=== PATIENT | male | born 1925 | race Caucasian/White ===

== ENCOUNTER 2016-09-07 19:48 | Inpatient (IN) | payer OTHER, MEDICARE ==
[2016-09-07] MEDS ORDERED: TRAMADOL HCL 50 MG TABLET PO ONE (20:25)
--- NOTE | 2016-09-07 21:19 | RADIOLOGY REPORT (SQ) ---
EXAM DESCRIPTION: KNEE LEFT 4 VIEW COMPLETED DATE/TIME: 09/07/2016 8:49 pm REASON FOR STUDY: left knee effusion COMPARISON: None. NUMBER OF VIEWS: Four views. TECHNIQUE: AP, lateral, and both oblique radiographic images acquired of the left knee. LIMITATIONS: None. FINDINGS: MINERALIZATION: Osteopenia. BONES: No acute fracture or dislocation. No worrisome bone lesions. Tricompartmental degenerative c hanges are present. JOINT: A small joint effusion is present. Incidental note is made of chondrocalcinosis. SOFT TISSUES: No soft tissue swelling. No radio-opaque foreign body. OTHER: No other significant finding. IMPRESSION: Tricompartmental degenerative changes and chondrocalcinosis. Small joint effusion is no nspecific. No evidence of acute osseous abnormality. TECHNICAL DOCUMENTATION: JOB ID: [id number] All Rights Reserved
[2016-09-07] MEDS ORDERED: DIAZEPAM 5 MG TABLET PO ONE (21:52)
[2016-09-07] MEDS ORDERED: IBUPROFEN 600 MG TABLET PO ONE ×2 (22:39→22:41)
[2016-09-07] MEDS ORDERED: NORMAL SALINE 1000 ML 1,000 ML IV ONE (23:20)
[2016-09-07 23:28] LABS: ABSOLUTE LYMPHOCYTES (AUTO) 0.7 10^3/uL (0.5-4.7); ABSOLUTE NEUT (AUTO) 8.5 10^3/uL (1.7-8.2); BASOPHILS % (AUTO) 0.4 % (0-2); HEMATOCRIT 42.5 % (37.9-51.0); HEMOGLOBIN 14.1 g/dL (13.5-17.0); HGB HCT DIFFERENCE -0.2; LYMPHOCYTES % (AUTO) 6.8 % (13-45); MEAN CORPUSCULAR HGB CONC 33.1 g/dL (32.0-36.0); MEAN CORPUSCULAR VOLUME 100 fl (80-97); MONOCYTES % (AUTO) 9.5 % (3-13); RED BLOOD COUNT 4.27 10^6/uL (4.35-5.55); RED CELL DISTRIBUTION WIDTH 13.7 % (11.5-14.0); SEGMENTED NEUTROPHILS % (AUTO) 83.3 % (42-78); WHITE BLOOD COUNT 10.3 10^3/uL (4.0-10.5)
[2016-09-07 23:34] LABS: PROTHROMBIN TIME 13.4 SEC (11.4-15.4)
[2016-09-07 23:35] LABS: VENOUS BLOOD BASE EXCESS 6.4 mmol/L; VENOUS BLOOD HCO3 32.2 mmol/L (20-32); VENOUS BLOOD PCO2 50.5 mmHg (35-63); VENOUS BLOOD PH 7.42 (7.30-7.42)
[2016-09-07 23:46] LABS: ALANINE AMINOTRANSFERASE 34 U/L (21-72); ALBUMIN 3.5 g/dL (3.5-5.0); ALKALINE PHOSPHATASE 87 U/L (38-126); ANION GAP 13 (5-19); ASPARTATE AMINO TRANSFERASE 20 U/L (17-59); BILIRUBIN,DIRECT 0.6 mg/dL (0.0-0.4); BILIRUBIN,TOTAL 1.1 mg/dL (0.2-1.3); BLOOD UREA NITROGEN 17 mg/dL (7-20); CALCIUM 9.6 mg/dL (8.4-10.2); CARBON DIOXIDE 29 mmol/L (22-30); CHLORIDE 96 mmol/L (98-107); CREATININE RESULT 0.94 mg/dL (0.52-1.25); GLUCOSE 146 mg/dL (75-110); POTASSIUM 3.8 mmol/L (3.6-5.0); SODIUM 137.5 mmol/L (137-145); TOTAL PROTEIN 6.5 g/dL (6.3-8.2)
[2016-09-08 00:15] LABS: APPEARANCE,URINE SLIGHTLY-CLOUDY; BILIRUBIN,URINE NEGATIVE (NEGATIVE); GLUCOSE, URINE 50 mg/dL (NEGATIVE); KETONES,URINE NEGATIVE (NEGATIVE); LEUKOCYTE ESTERASE,URINE NEGATIVE (NEGATIVE); NITRITE,URINE NEGATIVE (NEGATIVE); PROTEIN,URINE 100 mg/dL (NEGATIVE); UROBILINOGEN,URINE NEGATIVE mg/dL (<2.0)
[2016-09-08 00:19] LABS: RBC,URINE RARE /HPF; WBC,URINE RARE /HPF
--- NOTE | 2016-09-08 01:13 | RADIOLOGY REPORT (SQ) ---
EXAM DESCRIPTION: CHEST PA/LAT COMPLETED DATE/TIME: 09/08/2016 1:01 am REASON FOR STUDY: fever COMPARISON: Chest x-ray 07/23/2011. CT chest 09/19/2011. EXAM PARAMETERS: NUMBER OF VIEWS: two views TECHNIQUE: Digital Frontal and Lateral radiographic views of the chest acquired. RADIATION DOSE: NA LIMITATIONS: none FINDINGS: LUNGS AND PLEURA: No consolidation, pneumothorax or pleural effusion. Hyperlucent lungs a re suggestive of emphysema. MEDIASTINUM AND HILAR STRUCTURES: No masses or contour abnormalities. HEART AND VASCULAR STRUCTURES: Heart normal size. No evidence for failure. BONES: Degenerative changes in the spine. HARDWARE: None in the chest. IMPRESSION: No acute radiographic finding in the chest. Emphysema. TECHNICAL DOCUMENTATION: JOB ID: [id number] 2010 [employer]- All Rights Reserved
--- NOTE | 2016-09-08 01:35 | ER Document Report ---
ED General - General Chief Complaint: Knee Pain Stated Complaint: SHOULDER/NECK PAIN Time Seen by Provider: 09/07/16 20:12 Mode of Arrival: Ambulatory Information source: Patient Notes: 89-year-old male who up to 2 days ago was ambulating with no difficulty had no complaints presents with complaints of weakness. Patient was found to be febrile on arrival admits to neck pain left knee pain. TRAVEL OUTSIDE OF THE [place] IN LAST 30 DAYS: No - HPI Onset: Other - 2 days Onset/Duration: Persistent Quality of pain: Achy Severity: Mild Pain Level: 1 Associated symptoms: Body/muscle aches, Fever Exacerbated by: Denies Relieved by: Denies Similar symptoms previously: No Recently seen / treated by doctor: No - Related Data Allergies/Adverse Reactions: acetaminophen [From Percocet] Allergy (Severe, Verified 02/14/14 13:23) N&V codeine [Codeine] Allergy (Severe, Verified 02/14/14 13:23) N&V levofloxacin [From Levaquin] Allergy (Severe, Verified 02/14/14 13:23) oxycodone HCl [From Percocet] Allergy (Severe, Verified 02/14/14 13:23) N&V propoxyphene HCl [From Darvon] Allergy (Severe, Verified 02/14/14 13:23) N&V Home Medications: Current Home Medications Doxycycline Hyclate 100 mg PO DAILY 09/08/16 [History] Ferrous Sulfate [Iron] 1 tab PO DAILY 09/08/16 [History] Fluticasone/Salmeterol [Advair 250-50 Diskus 28 dose] 2 puff IH ASDIR PRN [History] Glimepiride 1 mg PO BID 09/08/16 [History] Isosorbide Dinitrate [Isordil] 40 mg PO TID 09/08/16 [History] Levothyroxine Sodium 1 tab PO DAILY 09/08/16 [History] Loratadine 10 mg PO DAILY 09/08/16 [History] Mirabegron [Myrbetriq] 1 tab PO DAILY 09/08/16 [History] Montelukast Sodium [Singulair 10 mg Tablet] 1 tab PO DAILY 09/08/16 [History] Nitroglycerin [Nitroglycerin Patch] 1 patch TOP DAILY 09/08/16 [History] Pantoprazole Sodium [Protonix] 40 mg PO DAILY 09/08/16 [History] Pnv with Ca,No.72/Iron/FA [ Plus Tablet] 1 tab PO DAILY 09/08/16 [ History] Pramipexole Di-HCl [Pramipexole Dihydrochloride] 1 tab PO QHS 09/08/16 [History] Promethazine HCl 1 tab PO TID PRN 09/08/16 [History] Tamsulosin HCl [Flomax 0.4 mg Cap.sr] 1 cap PO DAILY 09/08/16 [History] Telmisartan/Hydrochlorothiazid [Telmisartan-Hctz 80-12.5 mg Tb] 0.5 tab PO DAILY 09/08/16 [History] Past Medical History - Social History Smoking Status: Never Smoker Cigarette use (# per day): No Chew tobacco use (# tins/day): No Smoking Education Provided: No Family History: Reviewed & Not Pertinent - Past Medical History Cardiac Medical History: Reports: Hx Congestive Heart Failure, Hx Coronary Artery Disease, Hx Hypertension, Hx Peripheral Vascular Disease Denies: Hx Heart Attack Pulmonary Medical History: Reports: Hx Asthma, Hx Bronchitis, Hx COPD - O2 dependent Denies: Hx Pneumonia, Hx Tuberculosis Neurological Medical History: Denies: Hx Cerebrovascular Accident, Hx Seizures Endocrine Medical History: Reports: Hx Diabetes Mellitus Type 2 GI Medical History: Reports: Hx Gastroesophageal Reflux Disease Musculoskeltal Medical History: Reports Hx Arthritis, Reports Hx Muscle Weakness Infectious Medical History: Past Surgical History: Reports: Hx Cardiac Catheterization - With 3 angioplasties., Hx Coronary Artery Bypass Graft, Hx Coronary Stent, Hx Inguinal Hernia - Bilateral inguinal hernia repairs in 1982, Hx Orthopedic Surgery - 5 cervical spine procedures, Hx Vascular Surgery - Aortobifem grafting by history. Denies: Hx Pacemaker - Immunizations Hx Diphtheria, Pertussis, Tetanus Vaccination: Yes Hx Pneumococcal Vaccination: 03/17/11 Review of Systems - Review of Systems Notes: REVIEW OF SYSTEMS: CONSTITUTIONAL : Denies fever, chills, or sweats. Denies recent illness. EENT: Admits to neck pain CARDIOVASCULAR: Denies chest pain. Denies palpitations or racing or irregular heart beat. Denies ankle edema. RESPIRATORY: Denies cough, cold, or chest congestion. Denies shortness of breath, difficulty breathing, or wheezing. GASTROINTESTINAL: Denies abdominal pain or distention. Denies nausea, vomiting , or diarrhea. Denies blood in vomitus, stools, or per rectum. Denies black, tarry stools. Denies constipation. GENITOURINARY: Denies difficulty urinating, painful urination, burning, frequency, blood in urine, or discharge. MUSCULOSKELETAL: Admits to joint pains knee pain SKIN: Denies rash, lesions or sores. HEMATOLOGIC : Denies easy bruising or bleeding. LYMPHATIC: Denies swollen, enlarged glands. NEUROLOGICAL: Denies confusion or altered mental status. Denies passing out or loss of consciousness. Denies dizziness or lightheadedness. Denies headache. Denies weakness or paralysis or loss of use of either side. Denies problems with gait or speech. Denies sensory loss, numbness, or tingling. Denies seizures. PSYCHIATRIC: Denies anxiety or stress. Denies depression, suicidal ideation, or homicidal ideation. ALL OTHER SYSTEMS REVIEWED AND NEGATIVE. Dictation was performed using [employer] voice recognition software PHYSICAL EXAMINATION: GENERAL: Elderly male HEAD: Atraumatic, normocephalic. EYES: Pupils equal round and reactive to light, extraocular movements intact, sclera anicteric, conjunctiva are normal. ENT: Nares patent, oropharynx clear without exudates. Moist mucous membranes. NECK: Normal range of motion, supple without lymphadenopathy LUNGS: Breath sounds clear to auscultation bilaterally and equal. No wheezes rales or rhonchi. HEART: Regular rate and rhythm without murmurs ABDOMEN: Soft, nontender, nondistended abdomen. No guarding, no rebound. No masses appreciated. Musculoskeletal: Normal range of motion, no pitting or edema. No cyanosis. NEUROLOGICAL: Extremely weak unable to raise himself in the bed mild effusion left knee PSYCH: Normal mood, normal affect. SKIN: Warm, Dry, normal turgor, no rashes or lesions noted. Physical Exam - Vital signs Vitals: Temp Pulse Resp BP Pulse Ox 100.5 F H 102 H 22 H 141/56 H 96 09/07/16 19:55 09/07/16 19:55 09/07/16 19:55 09/07/16 19:55 09/07/16 19:55 Course - Re-evaluation Re-evalutation: 09/08/16 01:[address] Bob for admission he defers on admission given that no source of infection found no source of the weakness, I have requested he evaluate patient prior to refusal 09/08/16 02:54 Patient is noted to have an ESR of 102, we will admit to the hospitalist service at this time no specific source of infection is found at this time patient does meet sirs criteria 09/08/16 03:29 Patient initially was noted to be febrile tachycardic, no specific source of infection therefore I will hold on starting antibiotics at this time. Patient will be admitted - Vital Signs Vital signs: Temp Pulse Resp BP Pulse Ox 98.1 F 102 H 19 105/50 L 90 L 09/08/16 01:06 09/07/16 19:55 09/08/16 02:30 09/08/16 02:30 09/08/16 02:30 - Laboratory Result Diagrams: 09/07/16 23:07 09/07/16 23:07 Laboratory results interpreted by me: 09/07/16 09/07/16 09/07/16 23:07 23:07 23:07 RBC 4.27 L MCV 100 H Seg Neutrophils % 83.3 H Lymphocytes % 6.8 L Absolute Neutrophils 8.5 H ESR VBG HCO3 32.2 H Chloride 96 L Glucose 146 H POC Glucose Direct Bilirubin 0.6 H Creatine Kinase Urine Protein Urine Glucose (UA) 09/07/16 09/07/16 09/07/16 23:07 23:07 23:29 RBC MCV Seg Neutrophils % Lymphocytes % Absolute Neutrophils ESR 102 H VBG HCO3 Chloride Glucose POC Glucose 134 H Direct Bilirubin Creatine Kinase 32 L Urine Protein Urine Glucose (UA) 09/07/16 23:54 RBC MCV Seg Neutrophils % Lymphocytes % Absolute Neutrophils ESR VBG HCO3 Chloride Glucose POC Glucose Direct Bilirubin Creatine Kinase Urine Protein 100 H Urine Glucose (UA) 50 H - Diagnostic Test Radiology reviewed: Image reviewed, Reports reviewed Discharge - Discharge Clinical Impression: Weakness, Unable to ambulate, SIRS (systemic inflammatory response syndrome) Fever Qualifiers: Fever type: unspecified Qualified Code(s): R50.9 - Fever, unspecified Condition: Stable Disposition: ADMITTED OBSERVATION Admitting Provider: Hospitalist Unit Admitted: Telemetry Referrals: JERALD WHITE MD [Primary Care Provider] - Follow up as needed
[2016-09-08] MEDS ORDERED: METHYLPREDNISOLONE INJ 125 MG/2 ML SDV IV ONE (02:54)
[2016-09-08] MEDS ORDERED: CYCLOBENZAPRINE HCL 10 MG TABLET PO PRN (02:55)
[2016-09-08] MEDS ORDERED: TRAMADOL HCL 50 MG TABLET PO PRN (02:55)
[2016-09-08] MEDS ORDERED: DEXTROSE 50%-WATER 25 GM/50 ML DISP.SYRIN IV PRN ×2 (02:57)
[2016-09-08] MEDS ORDERED: DEXTROSE 40% GEL 15 GM TUBE PO PRN ×2 (02:57)
[2016-09-08] MEDS ORDERED: GLUCAGON,HUMAN RECOMB 1 MG INJ IM PRN (02:57)
[2016-09-08] MEDS: NORMAL SALINE 1000 ML 1,000 ML IV SCH ×2 (03:56→10:58)
[2016-09-08] MEDS ORDERED: LEVOFLOXACIN 750 MG/D5W RTU 150 ML IV SCH (04:00)
[2016-09-08] MEDS ORDERED: LEVOFLOXACIN 750 MG/D5W RTU 750 MG/150 ML RTUPB IV ONE (04:00)
--- NOTE | 2016-09-08 04:31 | PDOC H&P ---
History of Present Illness Admission Date/PCP: 09/08/16 02:57 JERALD WHITE MD Patient complains of: Arthralgias History of Present Illness: CHACHO WOO JR is a 89 year old male with a past medical history of severe COPD with oxygen dependence, congestive heart failure, coronary artery disease status post stent, hypertension, dyslipidemia, diabetes BPH, and chronic constipation. He denies usual state of health until approximately 12 hours prior to presentation with complaints of diffuse arthralgias and abdominal pain several days of constipation and an episode of diarrhea. He comes to the emergency room for evaluation is found to have fever, hypotension, generalized weakness and tachycardia is referred to the hospitalist for admission. Patient is a poor historian but is unaware of recent change in medication. Past Medical History Cardiac Medical History: Reports: Congestive Heart Failure, Coronary Artery Disease, Hypertension, Peripheral Vascular Disease Denies: Myocardial Infarction Pulmonary Medical History: Reports: Asthma, Bronchitis, Chronic Obstructive Pulmonary Disease (COPD) - O2 dependent Denies: Pneumonia, Tuberculosis Neurological Medical History: Denies: Seizures Endocrine Medical History: Reports: Diabetes Mellitus Type 2 GI Medical History: Reports: Gastroesophageal Reflux Disease Musculoskeltal Medical History: Reports: Arthritis Hematology: Denies: Anemia Past Surgical History Past Surgical History: Reports: Cardiac Catheterization - With 3 angioplasties. , Coronary Artery Bypass Graft, Coronary Stent, Orthopedic Surgery - 5 cervical spine procedures, Vascular Surgery - Aortobifem grafting by history Denies: Pacemaker Social History Information Source: Patient, [facility] Records Lives with: Family Smoking Status: Never Smoker Frequency of Alcohol Use: None Hx Recreational Drug Use: No Hx Prescription Drug Abuse: No - Advance Directive Resuscitation Status: Full Code Family History Family History: DM Parental Family History Reviewed: Yes Children Family History Reviewed: Yes Sibling(s) Family History Reviewed.: Yes Medication/Allergy Home Medications: Kennedy-3/Dha/Epa/Fish Oil [Fish Oil 1,000 Mg Softgel] 1 each PO BID 05/21/11 Pioglitazone HCl/Metformin HCl [Actoplus Met 15 Mg-500 Mg Tab] 2 each PO DAILY 05/21/11 Tiotropium [place] [Spiriva] 18 mcg IH DAILY 05/21/11 Albuterol Sulfate [Proventil 0.5% Neb 2.5 mg/0.5 mL Vial] 2.5 mg IH Q2 PRN 05/27 Insulin Lispro [Humalog Inj 100 Unit/Ml 3 Ml Vial] 0 unit SUBCUT ACHSP 05/28/11 Ipratropium [place] [Atrovent 0.02% Neb 0.5 Mg/2.5 Ml Vial.Neb] 0.5 mg IH Q6 26/02 Doxycycline Hyclate 100 mg PO DAILY 09/08/16 Ferrous Sulfate [Iron] 1 tab PO DAILY 09/08/16 Fluticasone/Salmeterol [Advair 250-50 Diskus 28 dose] 2 puff IH ASDIR PRN Glimepiride 1 mg PO BID 09/08/16 Isosorbide Dinitrate [Isordil] 40 mg PO TID 09/08/16 Levothyroxine Sodium 1 tab PO DAILY 09/08/16 Loratadine 10 mg PO DAILY 09/08/16 Mirabegron [Myrbetriq] 1 tab PO DAILY 09/08/16 Montelukast Sodium [Singulair 10 mg Tablet] 1 tab PO DAILY 09/08/16 Nitroglycerin [Nitroglycerin Patch] 1 patch TOP DAILY 09/08/16 Pantoprazole Sodium [Protonix] 40 mg PO DAILY 09/08/16 Pnv with Ca,No.72/Iron/FA [ Plus Tablet] 1 tab PO DAILY 09/08/16 Pramipexole Di-HCl [Pramipexole Dihydrochloride] 1 tab PO QHS 09/08/16 Promethazine HCl 1 tab PO TID PRN 09/08/16 Tamsulosin HCl [Flomax 0.4 mg Cap.sr] 1 cap PO DAILY 09/08/16 Telmisartan/Hydrochlorothiazid [Telmisartan-Hctz 80-12.5 mg Tb] 0.5 tab PO DAILY 09/08/16 Allergies/Adverse Reactions: acetaminophen [From Percocet] Allergy (Severe, Verified 02/14/14 13:23) N&V codeine [Codeine] Allergy (Severe, Verified 02/14/14 13:23) N&V levofloxacin [From Levaquin] Allergy (Severe, Verified 02/14/14 13:23) oxycodone HCl [From Percocet] Allergy (Severe, Verified 02/14/14 13:23) N&V propoxyphene HCl [From Darvon] Allergy (Severe, Verified 02/14/14 13:23) N&V Review of Systems ROS unobtainable: Due to mental status - Patient is a poor historian Physical Exam Vital Signs: Temp Pulse Resp BP Pulse Ox 98.1 F 102 H 20 100/40 L 99 09/08/16 01:06 09/07/16 19:55 09/08/16 03:31 09/08/16 03:31 09/08/16 03:31 General appearance: PRESENT: cooperative, disheveled, mild distress Head exam: PRESENT: atraumatic, normocephalic Eye exam: PRESENT: conjunctiva pink, EOMI, PERRLA. ABSENT: scleral icterus Ear exam: PRESENT: normal external ear exam Mouth exam: PRESENT: moist, tongue midline Neck exam: ABSENT: carotid bruit, JVD, lymphadenopathy, thyromegaly Respiratory exam: PRESENT: accessory muscle use, crackles, prolonged expiratory phas, symmetrical, tachypnea. ABSENT: chest wall tenderness, clear to auscultation staci, decreased breath sounds, rales, retraction, rhonchi Cardiovascular exam: PRESENT: RRR. ABSENT: diastolic murmur, rubs, systolic murmur Pulses: PRESENT: normal dorsalis pedis pul Vascular exam: PRESENT: normal capillary refill GI/Abdominal exam: PRESENT: distended, hyperactive bowel sounds, tenderness - Left lower quadrant pain with palpation of the colon. ABSENT: ascites Extremities exam: PRESENT: full ROM, joint swelling - Left knee effusion greater than 2 weeks old without erythema, pain or heat. ABSENT: calf tenderness, clubbing, pedal edema Musculoskeletal exam: PRESENT: ambulatory, other - Generalized arthralgia nonfocal Neurological exam: PRESENT: alert, altered, awake, oriented to person, oriented to place, oriented to situation, CN II-XII grossly intact Psychiatric exam: PRESENT: appropriate affect, normal mood. ABSENT: homicidal ideation, suicidal ideation Skin exam: PRESENT: dry, intact, warm. ABSENT: cyanosis, rash Results Impressions: Knee X-Ray 09/07/16 20:25 IMPRESSION: Tricompartmental degenerative changes and chondrocalcinosis. Small joint effusion is nonspecific. No evidence of acute osseous abnormality. Chest X-Ray 09/07/16 22:39 IMPRESSION: No acute radiographic finding in the chest. Emphysema. Assessment & Plan - Diagnosis (1) Diverticulitis Is this a current diagnosis for this admission?: YesPlan: CT abdomen pelvis pending, empiric Cipro and Flagyl, Fleet enema lactulose as needed and symptomatic management follow-up CBC (2) Fever Qualifiers: Fever type: unspecified Qualified Code(s): R50.9 - Fever, unspecified Is this a current diagnosis for this admission?: YesPlan: Secondary to #1 (3) Encephalopathy acute Is this a current diagnosis for this admission?: YesPlan: Secondary to #1 supportive care (4) Sepsis Is this a current diagnosis for this admission?: YesPlan: Hypotension, tachycardia, encephalopathy secondary to #1 IV fluid challenge, empiric antibiotics follow-up CBC and chemistry, consider pressors - Time Time Spent: 50 to 70 Minutes - Inpatient Certification Medical Necessity: Need Close Monitoring Due to Risk of Patient Decompensation
[2016-09-08] MEDS ORDERED: CEFTRIAXONE 1 GM/D5W RTU 50 ML IV SCH (05:00)
[2016-09-08] MEDS ORDERED: CEFTRIAXONE 1 GM/D5W RTU 1 GM/50 ML RTUPB IV ONE (05:15)
[2016-09-08] MEDS: METRONIDAZOLE 500 MG TABLET PO SCH ×4 (05:38→23:07)
[2016-09-08] MEDS: HEPARIN SOD (PORCINE) 5,000 UNIT/ML 1 ML SYRINGE SUBCUT SCH ×3 (05:39→21:16)
--- NOTE | 2016-09-08 07:24 | RADIOLOGY REPORT (SQ) ---
EXAM DESCRIPTION: CT ABD/PELVIS WITH IV ORAL COMPLETED DATE/TIME: 09/08/2016 6:53 am REASON FOR STUDY: abd distention COMPARISON: CT abdomen and pelvis 08/24/2015, 05/22/2011. TECHNIQUE: CT scan of the abdomen and pelvis performed using helical scanning technique with dynamic intravenous contrast injection and oral contrast. Images reviewed with lung, soft tissue, and bone w indows. Reconstructed coronal and sagittal MPR images reviewed. Delayed images for evaluation of the urinary system also acquired. All images stored on PACS. All CT scanners at this facility use dose modulation, iterative reconstruction, and/or weight based d osing when appropriate to reduce radiation dose to as low as reasonably achievable (ALARA). [facility]: Dose Right [facility]: CareDose [facility]: Dose Right [facility]: Teradose 4D [facility]: [place]ells CONTRAST TYPE AND DOSE: contrast/concentration: Isovue 370.00 mg/ml; Total Contrast Delivered: 85.0 ml; Total Saline Delivered: 69.0 ml RENAL FUNCTION: Creatinine 0.94 RADIATION DOSE: Up-to-date CT equipment and radiation dose reduction techniques were employed. CTDIv ol: 13.8 - 18.2 mGy. DLP: 1601 mGy-cm.. LIMITATIONS: None. FINDINGS: LOWER CHEST: Mild bibasilar atelectasis. No pleural effusion. LIVER: Normal size. No masses or dilated ducts. SPLEEN: Normal size. PANCREAS: No significant calcifications. No adjacent inflammation or peripancreatic fluid collections . Pancreatic duct not dilated. GALLBLADDER: Present. ADRENAL GLANDS: No significant masses or asymmetry. RIGHT KIDNEY AND URETER: No significant calcifications. No hydronephrosis or hydroureter. LEFT KIDNEY AND URETER: There is a 1.4 cm hypodense area at the left kidney, probably a small cyst. Additional subcentimeter hypodensity at the left kidney, too small to be adequately characterized. N o significant calcifications. No hydronephrosis or hydroureter. AORTA AND VESSELS: Atherosclerotic calcifications within the abdominal aorta and its branches. Ectat ic infrarenal abdominal aorta measuring 2.7 cm. Bilateral common iliac artery stents are again noted . RETROPERITONEUM: No retroperitoneal hemorrhage or masses. BOWEL AND PERITONEAL CAVITY: No small bowel obstruction, the oral contrast has reached the ascending colon. Large amount of stool throughout the colon. No free fluid or free air. APPENDIX: Normal. PELVIS: The urinary bladder is decompressed by a Benitez catheter. Small amount of air in the anterior aspect of the urinary bladder, may be due to recent instrumentation. No free fluid or pelvic mass. ABDOMINAL WALL: No hernias. BONES: Degenerative changes in the spine. IMPRESSION: Large amount of stool throughout the colon. Otherwise, no acute findings in the abdomen or pelvis. TECHNICAL DOCUMENTATION: JOB ID: [id number] Quality ID # [id number]: Final reports with documentation of one or more dose reduction techniques (e.g., Au tomated exposure control, adjustment of the mA and/or kV according to patient size, use of iterative reconstruction technique) 2010 [employer]- All Rights Reserved
[2016-09-08] MEDS: IPRATROPIUM/ALBUTEROL 0.5-2.5 MG/3 ML AMPUL NEB SCH ×3 (08:42→19:57)
[2016-09-08] MEDS ORDERED: KETOROLAC TROMETHAMINE INJ/PF 30 MG/1 ML SDV IV PRN (08:45)
[2016-09-08] MEDS ORDERED: FLUTICASONE/SALMETEROL DISKUS 250-50 MCG/DOSE IH PRN (08:48)
[2016-09-08] MEDS: LANSOPRAZOLE 30 MG TAB.RAP.DR PO SCH ×2 (08:51→17:32)
--- NOTE | 2016-09-08 09:29 | EKG REPORT ---
SEVERITY:- BORDERLINE ECG - SINUS TACHYCARDIA PROBABLE LEFT ATRIAL ABNORMALITY : Confirmed by: Lance Davis 08-Sep-2016 09:29:35
[2016-09-08] MEDS ORDERED: BISACODYL 10 MG SUPP.RECT PR PRN (09:37)
[2016-09-08] MEDS ORDERED: TIOTROPIUM BROMIDE DPI 5 CAP/KIT (18 MCG/CAP) IH SCH (10:00)
[2016-09-08] MEDS ORDERED: KETOROLAC TROMETHAMINE INJ/PF 30 MG/1 ML SDV IV ONE (10:00)
[2016-09-08] MEDS ORDERED: [UNRECOGNIZED DRUG - OTHER] PO SCH (10:00)
[2016-09-08] MEDS ORDERED: FERROUS SULFATE PO SCH (10:00)
[2016-09-08] MEDS ORDERED: MIRABEGRON PO SCH (10:00)
[2016-09-08] MEDS ORDERED: ISOSORBIDE DINITRATE 40 MG PO SCH (10:00)
[2016-09-08] MEDS ORDERED: PIOGLITAZONE HCL PO SCH (10:00)
[2016-09-08] MEDS ORDERED: [UNRECOGNIZED DRUG - OTHER] PO SCH (10:00)
[2016-09-08] MEDS ORDERED: ISOSORBIDE MONONITRATE 30 MG TAB.ER.24H PO SCH (10:00)
[2016-09-08] MEDS ORDERED: METFORMIN HCL PO SCH (10:00)
[2016-09-08] MEDS ORDERED: (PENDING PHARMACY ID) (Timolol [Betimol] 5 ML) OP SCH (10:00)
[2016-09-08] MEDS ORDERED: (PENDING PHARMACY ID) (Esomeprazole Mag Trihydrate [Nexium] 40 MG) PO SCH (10:00)
[2016-09-08] MEDS: POLYETHYLENE GLYCOL 3350 POWDER 17 GM/1 PACKET PO SCH (11:02)
[2016-09-08] MEDS: ASPIRIN 325 MG TABLET PO SCH (11:02)
[2016-09-08] MEDS: DOCUSATE SODIUM 100 MG CAPSULE PO SCH ×2 (11:02→17:32)
[2016-09-08] MEDS: LORATADINE 10 MG TABLET PO SCH (11:03)
[2016-09-08] MEDS: GLIMEPIRIDE 1 MG TABLET PO SCH ×2 (11:03→17:32)
[2016-09-08] MEDS: LEVOTHYROXINE SODIUM 0.075 MG TABLET PO SCH (11:03)
[2016-09-08] MEDS: TAMSULOSIN HCL 0.4 MG CAP.SR.24H PO SCH (11:03)
[2016-09-08] MEDS: METOPROLOL TARTRATE 25 MG TABLET PO SCH ×2 (11:04→23:07)
[2016-09-08] MEDS: MONTELUKAST SODIUM 10 MG TABLET PO SCH (11:05)
[2016-09-08] MEDS: CEFTRIAXONE 1 GM/D5W RTU 1 GM/50 ML RTUPB IV SCH (11:05)
[2016-09-08] MEDS: TIOTROPIUM BROMIDE DPI 5 CAP/KIT (18 MCG/CAP) IH SCH (11:06)
[2016-09-08] MEDS: INSULIN LISPRO 100 UNIT/ML 3 ML VIAL SUBCUT PRN ×3 (12:13→21:16)
[2016-09-08] MEDS: ISOSORBIDE DINITRATE 20 MG TABLET PO SCH ×2 (15:09→21:15)
[2016-09-08] MEDS: METFORMIN HCL 500 MG TABLET PO SCH (17:32)
[2016-09-08] MEDS: FLUTICASONE/SALMETEROL DISKUS 250-50 MCG/DOSE IH SCH (21:15)
[2016-09-08] MEDS ORDERED: ATORVASTATIN CALCIUM 10 MG TABLET PO SCH (22:00)
[2016-09-08] MEDS ORDERED: PRAMIPEXOLE DI-HCL 0.5 MG TABLET PO SCH (22:00)
[2016-09-08] MEDS ORDERED: LEVOFLOXACIN 750 MG/D5W RTU 750 MG/150 ML RTUPB IV SCH (22:00)
[2016-09-08] MEDS ORDERED: QUETIAPINE FUMARATE 25 MG TABLET PO SCH (22:00)
[2016-09-09] MEDS: IPRATROPIUM/ALBUTEROL 0.5-2.5 MG/3 ML AMPUL NEB SCH ×3 (01:44→13:55)
[2016-09-09] MEDS: METRONIDAZOLE 500 MG TABLET PO SCH (05:50)
[2016-09-09] MEDS: ISOSORBIDE DINITRATE 20 MG TABLET PO SCH (05:50)
[2016-09-09] MEDS: HEPARIN SOD (PORCINE) 5,000 UNIT/ML 1 ML SYRINGE SUBCUT SCH (05:50)
[2016-09-09 06:25] LABS: ABSOLUTE LYMPHOCYTES (AUTO) 0.7 10^3/uL (0.5-4.7); ABSOLUTE MONOCYTES (AUTO) 0.5 10^3/uL (0.1-1.4); BASOPHILS % (AUTO) 0.4 % (0-2); EOSINOPHILS % (AUTO) 0.3 % (0-6); HEMATOCRIT 32.4 % (37.9-51.0); HGB HCT DIFFERENCE 0.6; LYMPHOCYTES % (AUTO) 8.5 % (13-45); MEAN CORPUSCULAR HEMOGLOBIN 33.6 pg (27.0-33.4); MEAN CORPUSCULAR HGB CONC 33.8 g/dL (32.0-36.0); MEAN CORPUSCULAR VOLUME 99 fl (80-97); MONOCYTES % (AUTO) 5.9 % (3-13); RED BLOOD COUNT 3.26 10^6/uL (4.35-5.55); RED CELL DISTRIBUTION WIDTH 13.8 % (11.5-14.0); SEGMENTED NEUTROPHILS % (AUTO) 84.9 % (42-78); WHITE BLOOD COUNT 8.3 10^3/uL (4.0-10.5)
[2016-09-09 06:33] LABS: ANION GAP 10 (5-19); BLOOD UREA NITROGEN 31 mg/dL (7-20); CALCIUM 8.5 mg/dL (8.4-10.2); CARBON DIOXIDE 26 mmol/L (22-30); CHLORIDE 103 mmol/L (98-107); GLUCOSE 116 mg/dL (75-110); POTASSIUM 3.3 mmol/L (3.6-5.0); SODIUM 138.5 mmol/L (137-145)
[2016-09-09] MEDS ORDERED: POTASSIUM CHLORIDE 10 MEQ TABLET.SA PO ONE (07:30)
[2016-09-09] MEDS: ASPIRIN 325 MG TABLET PO SCH (09:59)
[2016-09-09] MEDS: LEVOTHYROXINE SODIUM 0.075 MG TABLET PO SCH (10:00)
[2016-09-09] MEDS: METFORMIN HCL 500 MG TABLET PO SCH (10:00)
[2016-09-09] MEDS: LORATADINE 10 MG TABLET PO SCH (10:00)
[2016-09-09] MEDS ORDERED: FERROUS SULFATE 325 MG TABLET PO SCH (10:00)
[2016-09-09] MEDS: TAMSULOSIN HCL 0.4 MG CAP.SR.24H PO SCH (10:00)
[2016-09-09] MEDS: LANSOPRAZOLE 30 MG TAB.RAP.DR PO SCH (10:00)
[2016-09-09] MEDS: CEFTRIAXONE 1 GM/D5W RTU 1 GM/50 ML RTUPB IV SCH (10:01)
[2016-09-09] MEDS: GLIMEPIRIDE 1 MG TABLET PO SCH (10:01)
[2016-09-09] MEDS: METOPROLOL TARTRATE 25 MG TABLET PO SCH (10:02)
[2016-09-09] MEDS: POLYETHYLENE GLYCOL 3350 POWDER 17 GM/1 PACKET PO SCH (10:16)
[2016-09-09] MEDS: FLUTICASONE/SALMETEROL DISKUS 250-50 MCG/DOSE IH SCH (10:16)
[2016-09-09] MEDS: TIOTROPIUM BROMIDE DPI 5 CAP/KIT (18 MCG/CAP) IH SCH (10:16)
[2016-09-09] MEDS: MONTELUKAST SODIUM 10 MG TABLET PO SCH (10:16)
[2016-09-09] MEDS: DOCUSATE SODIUM 100 MG CAPSULE PO SCH (10:16)
--- NOTE | 2016-09-09 14:42 | PDOC DISCHARGE SUMMARY ---
General - Admit/Disc Date/PCP Admission Date/Primary Care Provider: 09/08/16 02:57 JERALD WHITE MD Discharge Date: 09/09/16 - Discharge Diagnosis (1) Acute viral syndrome Is this a current diagnosis for this admission?: Yes (2) Constipation by delayed colonic transit Is this a current diagnosis for this admission?: YesSummary: Colace 100 mg two times daily. Miralax daily if no bowel movement in 2 days (4) COPD (chronic obstructive pulmonary disease) Is this a current diagnosis for this admission?: YesSummary: Continue home oxygen, nebulizer and inhalers (6) Essential hypertension Is this a current diagnosis for this admission?: YesSummary: Continue current antihypertensives - Additional Information Resuscitation Status: Full Code Home Medications: Albuterol Sulfate [Albuterol Sulfate 2.5mg/3 mL] 2.5 mg NEB Q2HP PRN 09/08/16 Albuterol Sulfate [Proair HFA Inhalation Aerosol 8.5 gm MDI] 1 puff IH Q6HP PRN 09/08/16 Doxycycline Hyclate [Vibramycin 100 mg Tablet] 100 mg PO DAILY 09/08/16 Ferrous Sulfate [Feosol 325 mg Tablet] 325 mg PO WBRKFST 09/08/16 Fluticasone Propionate [Flonase Nasal [place] 50 Mcg/[place] 16 gm] 1 spray NASL BID 09/08/16 Fluticasone/Salmeterol [Advair 250-50 Diskus 14 Dose/Diskus] 1 puff IH Q12 09/08 Glimepiride [Amaryl 1 mg Tablet] 1 mg PO BID 09/08/16 Isosorbide Dinitrate [Dilatrate-Sr] 40 mg PO Q8 09/08/16 Levothyroxine Sodium [Synthroid 0.075 mg Tablet] 0.075 mg PO DAILY 09/08/16 Loratadine [Claritin 10 mg Tablet] 10 mg PO DAILY 09/08/16 Mirabegron [Myrbetriq] 50 mg PO DAILY 09/08/16 Montelukast Sodium [Singulair 10 mg Tablet] 10 mg PO QPM 09/08/16 Nitroglycerin [Nitro-Dur 10 mg (0.4MG/Hr) Transdermal Patch] 1 patch TOP DAILY 09/08/16 [place]-3 Fatty Acids/Fish Oil [Fish Oil 1,000 mg Capsule] 2 cap PO DAILY Pantoprazole Sodium [Protonix] 40 mg PO ACBRKFST 09/08/16 Pioglitazone HCl/Metformin HCl [Actoplus Met 15 mg-500 mg Tab] 2 tab PO DAILY Pnv No.122/Iron/Folic Acid [ Multi Tablet] 1 tab PO DAILY 09/08/16 Pramipexole Di-HCl [Pramipexole Dihydrochloride] 0.5 mg PO HSP PRN 09/08/16 Promethazine HCl [Phenergan 25 mg Tablet] 25 mg PO HSP PRN 09/08/16 Promethazine HCl [Phenergan 25 mg Tablet] 25 mg PO TIDP PRN 09/08/16 Tamsulosin HCl [Flomax 0.4 mg Cap.sr] 0.4 mg PO DAILY 09/08/16 Telmisartan/Hydrochlorothiazid [Telmisartan-Hctz 80-12.5 mg Tb] 0.5 tab PO DAILY 09/08/16 Tiotropium [place] [Spiriva Handihaler 5 Cap/Kit (18 Mcg/Cap)] 1 puff IH DAILY 09/08/16 Aspirin [Aspirin 325 mg Tablet] 325 mg PO DAILY tablet 09/09/16 Docusate Sodium [Colace 100 mg Capsule] 100 mg PO BID #60 capsule 09/09/16 Polyethylene Glycol 3350 [Miralax Powder 17 gm/Packet] 1 packet PO DAILY PRN # 30 pkg 09/09/16 Tramadol HCl [Ultram 50 mg Tablet] 50 mg PO Q8HP PRN #20 tablet 09/09/16 History of Present Illness Patient complains of: Arthralgias and left sided abdominal pain History of Present Illness: CHACHO WOO JR is a 89 year old male with a past medical history of severe COPD with oxygen dependence, congestive heart failure, coronary artery disease status post stent, hypertension, dyslipidemia, diabetes BPH, and chronic constipation. He denies usual state of health until approximately 12 hours prior to presentation with complaints of diffuse arthralgias and abdominal pain several days of constipation and an episode of diarrhea. He comes to the emergency room for evaluation is found to have fever, mild hypotension, generalized weakness and tachycardia is referred to the hospitalist for admission. Patient is a poor historian but is unaware of recent change in medication. Hospital Course Hospital Course: Patient was admitted to the hospitalist service on telemetry. He had undergone CT of the abdomen and pelvis with contrast in the emergency room prior to his arrival on the floor. This showed no acute abnormalities. Bowel was noted to be full of stool extremely constipated. Labs were all unremarkable. He had no fever or hypotension. He was given oral Flagyl for possible diverticulitis and ceftriazone. He was given MiraLAX Dulcolax suppository. He had 2 large bowel movements. His abdominal pain resolved after this. He was given Toradol for his joint pain. Today he has been able to be out of bed ambulating. Benitez was discontinued . He states he voided when he was in the bathroom to take a shower. Physical Exam Vital Signs: Temp Pulse Resp BP Pulse Ox 97.3 F 99 21 H 132/59 H 96 09/09/16 11:27 09/09/16 11:27 09/09/16 11:27 09/09/16 11:27 09/09/16 11:27 Intake & Output 09/08/16 09/09/16 09/10/16 06:59 06:59 06:59 Intake Total 1346 4495 Output Total 500 1750 Balance 846 2745 Weight 110.4 kg 79.8 kg General appearance: PRESENT: no acute distress, well-developed, well-nourished Head exam: PRESENT: atraumatic, normocephalic Eye exam: PRESENT: conjunctiva pink, EOMI, PERRLA. ABSENT: scleral icterus Ear exam: PRESENT: normal external ear exam Mouth exam: PRESENT: moist, tongue midline Respiratory exam: PRESENT: clear to auscultation staci. ABSENT: rales, rhonchi, wheezes Cardiovascular exam: PRESENT: RRR. ABSENT: diastolic murmur, rubs, systolic murmur Vascular exam: PRESENT: normal capillary refill GI/Abdominal exam: PRESENT: normal bowel sounds, soft. ABSENT: distended, guarding, mass, organolmegaly, rebound, tenderness Rectal exam: PRESENT: deferred Extremities exam: PRESENT: full ROM. ABSENT: calf tenderness, clubbing, pedal edema Musculoskeletal exam: PRESENT: ambulatory, full ROM Neurological exam: PRESENT: alert, awake, oriented to person, oriented to place , oriented to time, oriented to situation, CN II-XII grossly intact. ABSENT: motor sensory deficit Psychiatric exam: PRESENT: appropriate affect, normal mood. ABSENT: homicidal ideation, suicidal ideation Skin exam: PRESENT: dry, intact, warm. ABSENT: cyanosis, rash Results Laboratory Results: 09/09/16 06:08 09/09/16 06:08 09/09/16 09/09/16 06:08 06:08 WBC 8.3 RBC 3.26 L Hgb 11.0 L D Hct 32.4 L MCV 99 H MCH 33.6 H MCHC 33.8 RDW 13.8 Plt Count 176 Seg Neutrophils % 84.9 H Lymphocytes % 8.5 L Monocytes % 5.9 Eosinophils % 0.3 Basophils % 0.4 Absolute Neutrophils 7.0 Absolute Lymphocytes 0.7 Absolute Monocytes 0.5 Absolute Eosinophils 0.0 Absolute Basophils 0.0 Sodium 138.5 Potassium 3.3 L Chloride 103 Carbon Dioxide 26 Anion Gap 10 BUN 31 H Creatinine 1.10 Est GFR ( Amer) > 60 Est GFR (Non-Af Amer) > 60 Glucose 116 H Calcium 8.5 Impressions: Knee X-Ray 09/07/16 20:25 IMPRESSION: Tricompartmental degenerative changes and chondrocalcinosis. Small joint effusion is nonspecific. No evidence of acute osseous abnormality. Chest X-Ray 09/07/16 22:39 IMPRESSION: No acute radiographic finding in the chest. Emphysema. Abdomen/Pelvis CT 09/08/16 00:00 IMPRESSION: Large amount of stool throughout the colon. Otherwise, no acute findings in the abdomen or pelvis. Qualifiers PATEINT BEING DISCHARGED WITH ANY OF THE FOLLOWING DIAGNOSIS?: No Plan Discharge Plan: Home with family Time Spent: Less than 30 Minutes
[2016-09-09 14:45] VITALS: BP 112/55
== END 2016-09-09 15:17 | disposition home or self-care (01) | DRG 866 ==
LOC: ER 19:48 → EH 09-08 02:57 → 4W 09-08 04:50
PROVIDERS: ADMIT Internal Medicine; ATTEND Internal Medicine
DX: B34.9 Viral infection, unspecified (principal); J44.9 Chronic obstructive pulmonary disease, unspecified; K59.09 Other constipation; I10 Essential (primary) hypertension; I50.9 Heart failure, unspecified; I25.10 Atherosclerotic heart disease of native coronary artery without angina pectoris; E78.5 Hyperlipidemia, unspecified; K21.9 Gastro-esophageal reflux disease without esophagitis; E11.9 Type 2 diabetes mellitus without complications; N40.0 Benign prostatic hyperplasia without lower urinary tract symptoms; Z79.899 Other long term (current) drug therapy; Z79.82 Long term (current) use of aspirin; Z99.81 Dependence on supplemental oxygen; Z95.5 Presence of coronary angioplasty implant and graft; Z95.1 Presence of aortocoronary bypass graft; Z88.6 Allergy status to analgesic agent; Z88.8 Allergy status to other drugs, medicaments and biological substances
CPT/HCPCS: 36415; 71020; 74177; 80048; 80053; 81001; 82550; 82803; 82962; 83036; 83605; 83735; 84443; 84550; 85025; 85610; 85652; 87040; 87086; 93005; 93010; 94660; 96360; 99285; J0696; J1644; J1815; J1885; J2930; J3490; J7030; J7620

== ENCOUNTER → 2016-09-13 | Outpatient (CLI) | payer MEDICARE, OTHER ==
--- NOTE | 2016-09-13 15:02 | RADIOLOGY REPORT (SQ) ---
EXAM DESCRIPTION: CT HEAD WITHOUT COMPLETED DATE/TIME: 09/13/2016 2:14 pm REASON FOR STUDY: HEADACHE (R51) R51 HEADACHE COMPARISON: None. TECHNIQUE: Axial images acquired through the brain without intravenous contrast. Images reviewed wi th bone, brain and subdural windows. Images stored on PACS. All CT scanners at this facility use dose modulation, iterative reconstruction, and/or weight based d osing when appropriate to reduce radiation dose to as low as reasonably achievable (ALARA). [facility]: Dose Right [facility]: CareDose [facility]: Dose Right [facility]: Teradose 4D [facility]: [employer] RADIATION DOSE: Up-to-date CT equipment and radiation dose reduction techniques were employed. CTDIv ol: 49.0 mGy. DLP: 783 mGy-cm. mGy. LIMITATIONS: None. FINDINGS: VENTRICLES: Prominent. CEREBRUM: No masses. No hemorrhage. No midline shift. Areas of low density in the white matter mos t likely due to chronic micro-vascular ischemic change. No evidence for acute infarction. CEREBELLUM: No masses. No hemorrhage. No alteration of density. No evidence for acute infarction. EXTRAAXIAL SPACES: Mild age-related involutional change. No fluid collections. No masses. ORBITS AND GLOBE: No intra- or extraconal masses. Normal contour of globe without masses. CALVARIUM: No fracture. PARANASAL SINUSES: No fluid or mucosal thickening. SOFT TISSUES: No mass or hematoma. OTHER: No other significant finding. IMPRESSION: MILD CHRONIC CHANGES OF ATROPHY AND MICROVASCULAR ISCHEMIA. NO ACUTE PROCESS. TECHNICAL DOCUMENTATION: JOB ID: [id number] Quality ID # [id number]: Final reports with documentation of one or more dose reduction techniques (e.g., Au tomated exposure control, adjustment of the mA and/or kV according to patient size, use of iterative reconstruction technique) 2010 [employer]- All Rights Reserved
== END ==
LOC: RAD 13:00
PROVIDERS: ATTEND Family Medicine
DX: R51 Headache (principal)
CPT/HCPCS: 70450

== ENCOUNTER 2017-01-29 11:36 | Inpatient (IN) | payer MEDICARE, OTHER ==
[2017-01-29] MEDS ORDERED: NORMAL SALINE 1000 ML 1,000 ML IV ONE (11:56)
[2017-01-29] MEDS ORDERED: LORAZEPAM INJ 2 MG/1 ML VIAL IV ONE (11:56)
--- NOTE | 2017-01-29 11:58 | ER Document Report ---
ED Medical Screen (RME) - General Chief Complaint: Vomiting Stated Complaint: VOMITING Time Seen by Provider: 01/29/17 11:55 Notes: Patient presents with nausea and vomiting. He has some mild abdominal pain he states. He states last week was on the left but this week is on the right. He states when he was here last week for the same problem he had an unremarkable workup including a CAT scan. He states he is recently had his Zofran doubled and is also been taking Reglan but neither of these control the nausea and vomiting. He states he has not been able to eat. TRAVEL OUTSIDE OF THE [place] IN LAST 30 DAYS: No - Related Data Allergies/Adverse Reactions: acetaminophen [From Percocet] Allergy (Severe, Verified 01/29/17 11:38) N&V codeine [Codeine] Allergy (Severe, Verified 01/29/17 11:38) N&V levofloxacin [From Levaquin] Allergy (Severe, Verified 01/29/17 11:38) oxycodone HCl [From Percocet] Allergy (Severe, Verified 01/29/17 11:38) N&V propoxyphene HCl [From Darvon] Allergy (Severe, Verified 01/29/17 11:38) N&V ranolazine [From Ranexa] Allergy (Verified 01/29/17 11:57) Past Medical History - Social History Chew tobacco use (# tins/day): No Frequency of alcohol use: None Drug Abuse: None - Past Medical History Cardiac Medical History: Reports: Hx Congestive Heart Failure, Hx Coronary Artery Disease, Hx Hypertension, Hx Peripheral Vascular Disease Denies: Hx Heart Attack Pulmonary Medical History: Reports: Hx Asthma, Hx Bronchitis, Hx COPD Denies: Hx Pneumonia, Hx Tuberculosis Neurological Medical History: Denies: Hx Cerebrovascular Accident, Hx Seizures Endocrine Medical History: Reports: Hx Diabetes Mellitus Type 2 Renal/ Medical History: Denies: Hx Peritoneal Dialysis GI Medical History: Reports: Hx Gastroesophageal Reflux Disease Musculoskeltal Medical History: Reports Hx Arthritis, Reports Hx Muscle Weakness Psychiatric Medical History: Denies: Hx Depression Infectious Medical History: Past Surgical History: Reports: Hx Cardiac Catheterization - With 3 angioplasties., Hx Coronary Artery Bypass Graft, Hx Coronary Stent, Hx Inguinal Hernia - Bilateral inguinal hernia repairs in 1982, Hx Orthopedic Surgery - 5 cervical spine procedures, Hx Vascular Surgery - Aortobifem grafting by history. Denies: Hx Pacemaker - Immunizations Hx Diphtheria, Pertussis, Tetanus Vaccination: Yes Physical Exam - Vital signs Vitals: Temp Pulse Resp BP Pulse Ox 98.0 F 105 H 20 145/92 H 97 01/29/17 11:38 01/29/17 11:38 01/29/17 11:38 01/29/17 11:38 01/29/17 11:38 Course - Vital Signs Vital signs: Temp Pulse Resp BP Pulse Ox 98.0 F 105 H 20 145/92 H 97 01/29/17 11:38 01/29/17 11:38 01/29/17 11:38 01/29/17 11:38 01/29/17 11:38
[2017-01-29 12:52] LABS: ABSOLUTE BASOPHILS # (AUTO) 0.1 10^3/uL (0.0-0.2); ABSOLUTE EOSINOPHILS # (AUTO) 0.1 10^3/uL (0.0-0.6); ABSOLUTE LYMPHOCYTES (AUTO) 1.2 10^3/uL (0.5-4.7); ABSOLUTE MONOCYTES (AUTO) 0.5 10^3/uL (0.1-1.4); ABSOLUTE NEUT (AUTO) 3.7 10^3/uL (1.7-8.2); EOSINOPHILS % (AUTO) 1.4 % (0-6); HEMOGLOBIN 14.4 g/dL (13.5-17.0); HGB HCT DIFFERENCE 1.2; MEAN CORPUSCULAR HEMOGLOBIN 33.4 pg (27.0-33.4); MEAN CORPUSCULAR HGB CONC 34.4 g/dL (32.0-36.0); MEAN CORPUSCULAR VOLUME 97 fl (80-97); RED BLOOD COUNT 4.32 10^6/uL (4.35-5.55); RED CELL DISTRIBUTION WIDTH 14.8 % (11.5-14.0); SEGMENTED NEUTROPHILS % (AUTO) 66.6 % (42-78); WHITE BLOOD COUNT 5.5 10^3/uL (4.0-10.5)
[2017-01-29 13:10] LABS: ALANINE AMINOTRANSFERASE 39 U/L (21-72); ALBUMIN 3.9 g/dL (3.5-5.0); ALKALINE PHOSPHATASE 72 U/L (38-126); ANION GAP 11 (5-19); ASPARTATE AMINO TRANSFERASE 20 U/L (17-59); BILIRUBIN,DIRECT 0.5 mg/dL (0.0-0.4); BILIRUBIN,TOTAL 0.5 mg/dL (0.2-1.3); BLOOD UREA NITROGEN 15 mg/dL (7-20); CALCIUM 9.7 mg/dL (8.4-10.2); CARBON DIOXIDE 31 mmol/L (22-30); CHLORIDE 96 mmol/L (98-107); CREATININE RESULT 0.96 mg/dL (0.52-1.25); GLUCOSE 163 mg/dL (75-110); POTASSIUM 4.2 mmol/L (3.6-5.0); SODIUM 138.1 mmol/L (137-145); TOTAL PROTEIN 6.3 g/dL (6.3-8.2)
[2017-01-29 13:49] LABS: PROTHROMBIN TIME 13.4 SEC (11.4-15.4)
[2017-01-29 13:50] LABS: PARTIAL THROMBOPLASTIN TIME 29.4 SEC (23.5-35.8)
--- NOTE | 2017-01-29 14:20 | RADIOLOGY REPORT (SQ) ---
EXAM DESCRIPTION: CT HEAD WITHOUT COMPLETED DATE/TIME: 01/29/2017 2:06 pm REASON FOR STUDY: vomiting with change of position, r/o cerebellar COMPARISON: 09/13/2016 TECHNIQUE: Axial images acquired through the brain without intravenous contrast. Images reviewed wi th bone, brain and subdural windows. Images stored on PACS. All CT scanners at this facility use dose modulation, iterative reconstruction, and/or weight based d osing when appropriate to reduce radiation dose to as low as reasonably achievable (ALARA). [facility]: Dose Right [facility]: CareDose [facility]: Dose Right [facility]: Teradose 4D [facility]: [employer] RADIATION DOSE: Up-to-date CT equipment and radiation dose reduction techniques were employed. CTDIv ol: 64.6 mGy. DLP: 1163 mGy-cm.mGy. LIMITATIONS: None. FINDINGS: VENTRICLES: Prominent. CEREBRUM: No masses. No hemorrhage. No midline shift. Areas of low density in the white matter mos t likely due to chronic micro-vascular ischemic change. No evidence for acute infarction. CEREBELLUM: No masses. No hemorrhage. No alteration of density. No evidence for acute infarction. EXTRAAXIAL SPACES: Age-related involutional change. No fluid collections. No masses. ORBITS AND GLOBE: No intra- or extraconal masses. Normal contour of globe without masses. CALVARIUM: No fracture. PARANASAL SINUSES: No fluid or mucosal thickening. SOFT TISSUES: No mass or hematoma. OTHER: No other significant finding. IMPRESSION: No acute abnormality in the brain. EVIDENCE OF ACUTE STROKE: NO. TECHNICAL DOCUMENTATION: JOB ID: [id number] Quality ID # [id number]: Final reports with documentation of one or more dose reduction techniques (e.g., Au tomated exposure control, adjustment of the mA and/or kV according to patient size, use of iterative reconstruction technique) 2010 [email or web address]- All Rights Reserved
--- NOTE | 2017-01-29 14:54 | ER Document Report ---
ED General - General Mode of Arrival: Ambulatory Information source: Patient TRAVEL OUTSIDE OF THE [place] IN LAST 30 DAYS: No - HPI Exacerbated by: Other - when raises head <CAROLINA GRAHAM - Last Filed: 01/29/17 15:09> <ALEC KNOWLES - Last Filed: 01/29/17 19:39> - General Chief Complaint: Vomiting Stated Complaint: VOMITING Time Seen by Provider: 01/29/17 11:55 Notes: Patient is a 89 year old male who presents to the emergency department complaining of nausea when sitting up onset about a week ago. Patient states that every time he raises his head, he feels sick. Patients associated symptoms include vomiting and rhinorrhea. Patient denies, headaches, cheat pain, or shortness of breath. Patient states that he recently noticed when he places his finger in his left ear, he can not hear out of his right. (CAROLINA GRAHAM) Patient was previously evaluated here with a negative CT scan. States that every time he raises his head sits up or stands up he feels sick and starts vomiting and becomes dizzy. Denies any head injury however later reports a fall with head injury in the garage. (ALEC KNOWLES) - Related Data Allergies/Adverse Reactions: acetaminophen [From Percocet] Allergy (Severe, Verified 01/29/17 11:38) N&V codeine [Codeine] Allergy (Severe, Verified 01/29/17 11:38) N&V levofloxacin [From Levaquin] Allergy (Severe, Verified 01/29/17 11:38) oxycodone HCl [From Percocet] Allergy (Severe, Verified 01/29/17 11:38) N&V propoxyphene HCl [From Darvon] Allergy (Severe, Verified 01/29/17 11:38) N&V ranolazine [From Ranexa] Allergy (Verified 01/29/17 11:57) Home Medications: Current Home Medications Albuterol Sulfate [Proair Respiclick] 90 mcg IH Q6H PRN 01/29/17 [History] Benzonatate 100 mg PO Q8 PRN 01/29/17 [History] Past Medical History - General Information source: Patient - Social History Smoking Status: Former Smoker Chew tobacco use (# tins/day): No Frequency of alcohol use: None Drug Abuse: None Family History: DM Patient has suicidal ideation: No Patient has homicidal ideation: No - Past Medical History Cardiac Medical History: Reports: Hx Congestive Heart Failure, Hx Coronary Artery Disease, Hx Hypertension, Hx Peripheral Vascular Disease Pulmonary Medical History: Reports: Hx Asthma, Hx Bronchitis, Hx COPD Endocrine Medical History: Reports: Hx Diabetes Mellitus Type 2 GI Medical History: Reports: Hx Gastroesophageal Reflux Disease Musculoskeltal Medical History: Reports Hx Arthritis, Reports Hx Muscle Weakness Infectious Medical History: Past Surgical History: Reports: Hx Cardiac Catheterization - With 3 angioplasties., Hx Coronary Artery Bypass Graft, Hx Coronary Stent, Hx Inguinal Hernia - Bilateral inguinal hernia repairs in 1982, Hx Orthopedic Surgery - 5 cervical spine procedures, Hx Vascular Surgery - Aortobifem grafting by history - Immunizations Hx Diphtheria, Pertussis, Tetanus Vaccination: Yes Hx Pneumococcal Vaccination: 03/17/11 <CAROLINA GRAHAM - Last Filed: 01/29/17 15:09> Review of Systems - Review of Systems Constitutional: No symptoms reported EENT: See HPI, Nose congestion Cardiovascular: See HPI. denies: Chest pain Respiratory: See HPI. denies: Short of breath Gastrointestinal: See HPI, Vomiting Genitourinary: No symptoms reported Male Genitourinary: No symptoms reported Musculoskeletal: No symptoms reported Skin: No symptoms reported Hematologic/Lymphatic: No symptoms reported Neurological/Psychological: See HPI. denies: Headaches <CAROLINA GRAHAM - Last Filed: 01/29/17 15:09> Physical Exam <CAROLINA GRAHAM - Last Filed: 01/29/17 15:09> <ALEC KNOWLES - Last Filed: 01/29/17 19:39> - Vital signs Vitals: Temp Pulse Resp BP Pulse Ox 98.0 F 105 H 20 145/92 H 97 01/29/17 11:38 01/29/17 11:38 01/29/17 11:38 01/29/17 11:38 01/29/17 11:38 - Notes Notes: GENERAL: Alert, interacts well. No acute distress. HEAD: Normocephalic, atraumatic. EYES: Pupils equal, round, and reactive to light. Extraocular movements intact. ENT: Oral mucosa moist, tongue midline. Nares patent, no nasal septal hematoma, TM's intacts, copious amounts of cerumen. NECK: Full range of motion. Supple. Trachea midline. Murmur to carotid. LUNGS: Clear to auscultation bilaterally, no wheezes, rales, or rhonchi. No respiratory distress. HEART: Regular rate and rhythm. 1/6 systolic injection murmur, gallops, or rubs. ABDOMEN: Soft, non-tender. Non-distended. Bowel sounds present in all 4 quadrants. EXTREMITIES: Moves all 4 extremities spontaneously. No edema, radial and dorsalis pedis pulses 2/4 bilaterally. No cyanosis. NEUROLOGICAL: Alert and oriented x3. Normal speech. cranial nerves II through XII grossly intact. PSYCH: Normal affect, normal mood. SKIN: Warm, dry, normal turgor. No rashes or lesions noted. (CAROLINA GRAHAM) Negative Tami-Hallpike maneuver bilaterally. When standing becomes dizzy and immediately starts vomiting. (ALEC KNOWLES) Course - Laboratory Result Diagrams: 01/29/17 12:20 01/29/17 12:20 <CAROLINA GRAHAM - Last Filed: 01/29/17 15:09> - Laboratory Result Diagrams: 01/29/17 12:20 01/29/17 12:20 <ALEC KNOWLES - Last Filed: 01/29/17 19:39> - Re-evaluation Re-evalutation: 01/29/17 17:22 CBC unremarkable, coags unremarkable, CMP does not show any signs of dehydration , there is an elevated lipase at 585 which I suspect may be more related to the vomiting or possible ulcer than true pancreatitis as he is not significantly tender on palpation, urinalysis does not show any signs of dehydration surprisingly, CT scan of the head does not show any acute or subacute hemorrhage or infarction. I did attempt hydrating the patient, treating him with Antivert and then ambulating him, despite hydration and the Antivert as soon as they stood him up and try to walk and he immediately became dizzy and started vomiting again. Of concern for cerebellar process, discussed the patient with the hospitalist who agrees to admit him to their service on the telemetry care unit, patient will have MRI performed this evening if possible if not he will have MRI performed tomorrow morning and they will continue to work him up further for his intractable vomiting, dizziness upon ambulating and inability to ambulate. (ALEC KNOWLES) - Vital Signs Vital signs: Temp Pulse Resp BP Pulse Ox 98.0 F 74 28 H 111/63 87 L 01/29/17 11:38 01/29/17 15:00 01/29/17 19:10 01/29/17 17:02 01/29/17 15:06 - Laboratory Laboratory results interpreted by me: 01/29/17 01/29/17 12:20 12:20 RBC 4.32 L RDW 14.8 H Chloride 96 L Carbon Dioxide 31 H Glucose 163 H Direct Bilirubin 0.5 H Lipase 585.0 H Discharge <CAROLINA GRAHAM - Last Filed: 01/29/17 15:09> - Discharge Admitting Provider: Hospitalist - Dr. Au Unit Admitted: Telemetry <ALEC KNOWLES - Last Filed: 01/29/17 19:39> - Discharge Clinical Impression: Dizziness, inability to ambulate, Unable to ambulate Vomiting Qualifiers: Vomiting type: unspecified Vomiting Intractability: intractable Nausea presence : with nausea Qualified Code(s): R11.2 - Nausea with vomiting, unspecified Condition: Fair Disposition: ADMITTED INPATIENT Scribe Attestation: 01/29/17 19:39 I personally performed the services described in the documentation, reviewed and edited the documentation which was dictated to the scribe in my presence, and it accurately records my words and actions. (ALEC KNOWLES) Scribe Documentation - Scribe Written by Scribe:: Marisol Alberts, 01/29/2017 15:09 acting as scribe for :: Prieto <CAROLINA GRAHAM - Last Filed: 01/29/17 15:09>
[2017-01-29] MEDS ORDERED: MECLIZINE HCL 25 MG TABLET PO ONE (15:37)
[2017-01-29 16:45] LABS: APPEARANCE,URINE CLEAR; BILIRUBIN,URINE NEGATIVE (NEGATIVE); GLUCOSE, URINE NEGATIVE (NEGATIVE); KETONES,URINE NEGATIVE (NEGATIVE); LEUKOCYTE ESTERASE,URINE NEGATIVE (NEGATIVE); NITRITE,URINE NEGATIVE (NEGATIVE); PROTEIN,URINE NEGATIVE (NEGATIVE); URINE SPECIFIC GRAVITY 1.015; UROBILINOGEN,URINE NEGATIVE mg/dL (<2.0)
[2017-01-29] MEDS ORDERED: PRAMIPEXOLE DI-HCL 0.5 MG TABLET PO PRN (16:54)
[2017-01-29] MEDS ORDERED: OXYCODONE-ACETAMINOPHEN 5-325 MG TABLET PO PRN (16:57)
[2017-01-29] MEDS ORDERED: ONDANSETRON HCL INJ/PF 4 MG/2 ML SDV IV PRN (16:57)
[2017-01-29] MEDS ORDERED: ACETAMINOPHEN 325 MG TABLET PO PRN (16:57)
[2017-01-29] MEDS ORDERED: PROMETHAZINE HCL INJ 25 MG/1 ML VIAL IV PRN (16:57)
[2017-01-29] MEDS ORDERED: NORMAL SALINE 1000 ML 1,000 ML IV PRN (16:57)
[2017-01-29] MEDS ORDERED: GLUCAGON,HUMAN RECOMB 1 MG INJ IM PRN (17:47)
[2017-01-29] MEDS ORDERED: DEXTROSE 50%-WATER 25 GM/50 ML DISP.SYRIN IV PRN ×2 (17:47)
[2017-01-29] MEDS ORDERED: INSULIN LISPRO 100 UNIT/ML 3 ML VIAL SUBCUT PRN (17:47)
[2017-01-29] MEDS ORDERED: DEXTROSE 40% GEL 15 GM TUBE PO PRN ×2 (17:47)
[2017-01-29] MEDS ORDERED: HYDRALAZINE HCL INJ/PF 20 MG/1 ML SDV IV PRN (17:50)
--- NOTE | 2017-01-29 18:19 | PDOC H&P ---
History of Present Illness Admission Date/PCP: JERALD WHITE MD Patient complains of: Nausea and vomiting 2 weeks duration History of Present Illness: CHACHO WOO JR is a 89 year old male with history of congestive heart failure, coronary artery disease status post PCI with 3 different angioplasty, status post coronary artery bypass graft surgery, status post PCI with stent, hypertension, peripheral artery disease, COPD, diabetes mellitus type 2, peptic ulcer disease. The patient presented to the emergency room complaining of significant nausea and vomiting of about 2 weeks. He was initially seen by his family doctor in the office and subsequently in the emergency room about a week ago. He was thought to have urinary tract infection for which she was given antibiotics. He was also given a prescription for Reglan and Zofran. The patient states that his symptoms have persisted. The nausea and vomiting gets worse when he attempts to stand up and he admits to feeling a bit lightheaded. He denies any shortness of breath chest pain any diarrhea or abdominal pain, denies any focal neurologic symptoms, no seizures, no headaches. He has not had any fever or chills at home. Today in the emergency room, initial workup was grossly normal including a head CT scan which did not show any acute abnormality and the patient was given Zofran as well as Ativan. When the patient attempted to walk from the bed to the door he got lightheaded and started having significant nausea and vomiting. He denied having any vitiligo. A brain MRI/MRA is pending. The patient will be admitted to observation for further evaluation Past Medical History Cardiac Medical History: Reports: Congestive Heart Failure, Coronary Artery Disease, Hypertension, Peripheral Vascular Disease Denies: Myocardial Infarction Pulmonary Medical History: Reports: Asthma, Bronchitis, Chronic Obstructive Pulmonary Disease (COPD) Denies: Pneumonia, Tuberculosis Neurological Medical History: Denies: Seizures Endocrine Medical History: Reports: Diabetes Mellitus Type 2 GI Medical History: Reports: Gastroesophageal Reflux Disease Musculoskeltal Medical History: Reports: Arthritis Psychiatric Medical History: Denies: Depression Hematology: Denies: Anemia Past Surgical History Past Surgical History: Reports: Cardiac Catheterization - With 3 angioplasties. 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, Emergency Med Personnel Occupation: Retired Smoking Status: Former Smoker Frequency of Alcohol Use: None Hx Recreational Drug Use: No Drugs: None Hx Prescription Drug Abuse: No - Advance Directive Surrogate healthcare decision maker:: POA: Spouse CODE STATUS: Full Family History Family History: DM Parental Family History Reviewed: Yes Children Family History Reviewed: Yes Sibling(s) Family History Reviewed.: No Medication/Allergy Home Medications: Albuterol Sulfate [Proair HFA Inhalation Aerosol 8.5 gm MDI] 1 puff IH Q6HP PRN 09/08/16 Doxycycline Hyclate [Vibramycin 100 mg Tablet] 100 mg PO DAILY 09/08/16 Ferrous Sulfate [Feosol 325 mg Tablet] 325 mg PO [id number] 09/08/16 Fluticasone Propionate [Flonase Nasal Adrian 50 Mcg/Adrian 16 gm] 1 spray NASL Q12 09/08/16 Fluticasone/Salmeterol [Advair 250-50 Diskus 14 Dose/Diskus] 1 puff IH Q12 09/08 Glimepiride [Amaryl 1 mg Tablet] 1 mg PO BID 09/08/16 Isosorbide Dinitrate [Dilatrate-Sr] 40 mg PO Q8 09/08/16 Levothyroxine Sodium [Synthroid 0.075 mg Tablet] 0.075 mg PO QAM 09/08/16 Loratadine [Claritin 10 mg Tablet] 10 mg PO DAILY 09/08/16 Montelukast Sodium [Singulair 10 mg Tablet] 10 mg PO QPM 09/08/16 Nitroglycerin [Nitro-Dur 10 mg (0.4MG/Hr) Transdermal Patch] 1 patch TOP DAILY 09/08/16 Walton-3 Fatty Acids/Fish Oil [Fish Oil 1,000 mg Capsule] 2 cap PO DAILY Pioglitazone HCl/Metformin HCl [Actoplus Met 15 mg-500 mg Tab] 2 tab PO DAILY Pramipexole Di-HCl [Pramipexole Dihydrochloride] 0.5 mg PO HSP PRN 09/08/16 No122/Iron/Folic Acid [ Multi Tablet] 1 tab PO DAILY 09/08/16 Tamsulosin HCl [Flomax 0.4 mg Cap.sr] 0.4 mg PO DAILY 09/08/16 Telmisartan/Hydrochlorothiazid [Telmisartan-Hctz 80-12.5 mg Tb] 0.5 tab PO DAILY 09/08/16 Tiotropium [place] [Spiriva Handihaler 5 Cap/Kit (18 Mcg/Cap)] 1 puff IH DAILY 09/08/16 Aspirin [Aspirin 325 mg Tablet] 325 mg PO DAILY tablet 09/09/16 Polyethylene Glycol 3350 [Miralax Powder 17 gm/Packet] 1 packet PO DAILY PRN # 30 pkg 09/09/16 Metoclopramide HCl [Reglan] 5 mg PO BIDP PRN #12 tablet 01/23/17 Albuterol Sulfate [Proair Respiclick] 90 mcg IH Q6H PRN 01/29/17 Benzonatate 100 mg PO Q8 PRN 01/29/17 Allergies/Adverse Reactions: acetaminophen [From Percocet] Allergy (Severe, Verified 01/29/17 11:38) N&V codeine [Codeine] Allergy (Severe, Verified 01/29/17 11:38) N&V levofloxacin [From Levaquin] Allergy (Severe, Verified 01/29/17 11:38) oxycodone HCl [From Percocet] Allergy (Severe, Verified 01/29/17 11:38) N&V propoxyphene HCl [From Darvon] Allergy (Severe, Verified 01/29/17 11:38) N&V ranolazine [From Ranexa] Allergy (Verified 01/29/17 11:57) Review of Systems All systems: reviewed and no additional remarkable complaints except as stated Constitutional: PRESENT: as per HPI, weight loss Respiratory: PRESENT: as per HPI Gastrointestinal: PRESENT: nausea, vomiting. ABSENT: as per HPI, abdominal pain , bloating, coffee ground emesis, constipation, diarrhea, dysphagia, heartburn, hematemesis, hematochezia, melena, other Neurological: PRESENT: as per HPI Physical Exam Vital Signs: Temp Pulse Resp BP Pulse Ox 98.0 F 74 30 H 126/69 H 87 L 01/29/17 11:38 01/29/17 15:00 01/29/17 15:07 01/29/17 15:07 01/29/17 15:06 Intake & Output 01/28/17 01/29/17 01/30/17 06:59 06:59 06:59 Weight 72.575 kg General appearance: PRESENT: no acute distress, cooperative, disheveled Head exam: PRESENT: atraumatic, normocephalic Eye exam: PRESENT: conjunctiva pink, EOMI, PERRLA Mouth exam: PRESENT: moist, tongue midline Teeth exam: PRESENT: dental caries, poor dentation Neck exam: PRESENT: full ROM. ABSENT: carotid bruit, JVD, lymphadenopathy, meningismus, tenderness, thyromegaly, tracheal deviation, tracheostomy, other Respiratory exam: PRESENT: clear to auscultation staci, unlabored Cardiovascular exam: PRESENT: RRR, +S1, +S2 Pulses: PRESENT: normal carotid pulses, normal radial pulses Vascular exam: PRESENT: normal capillary refill GI/Abdominal exam: PRESENT: normal bowel sounds, soft. ABSENT: ascites, diminished bowel sounds, distended, firm, guarding, hernia, hyperactive bowel sounds, hypoactive bowel sounds, mass, Colón's sign, organolmegaly, rebound, rigid, tenderness, other Rectal exam: PRESENT: deferred Extremities exam: PRESENT: full ROM. ABSENT: calf tenderness, clubbing, joint swelling, pedal edema, tenderness, +1 edema, +2 edema, other Musculoskeletal exam: PRESENT: ambulatory, full ROM Neurological exam: PRESENT: awake, oriented to person, oriented to place, oriented to time, oriented to situation, reflexes normal, CN II-XII grossly intact Psychiatric exam: PRESENT: depressed, flat affect Skin exam: PRESENT: intact, warm Results Laboratory Results: 01/29/17 12:20 01/29/17 12:20 01/29/17 01/29/17 01/29/17 12:20 12:20 15:40 WBC 5.5 RBC 4.32 L Hgb 14.4 Hct 42.0 MCV 97 MCH 33.4 MCHC 34.4 RDW 14.8 H Plt Count 237 Seg Neutrophils % 66.6 Lymphocytes % 22.0 Monocytes % 9.0 Eosinophils % 1.4 Basophils % 1.0 Absolute Neutrophils 3.7 Absolute Lymphocytes 1.2 Absolute Monocytes 0.5 Absolute Eosinophils 0.1 Absolute Basophils 0.1 Sodium 138.1 Potassium 4.2 Chloride 96 L Carbon Dioxide 31 H Anion Gap 11 BUN 15 Creatinine 0.96 Est GFR ( Amer) > 60 Est GFR (Non-Af Amer) > 60 Glucose 163 H Calcium 9.7 Total Bilirubin 0.5 AST 20 ALT 39 Alkaline Phosphatase 72 Total Protein 6.3 Albumin 3.9 Lipase 585.0 H Urine Color YELLOW Urine Appearance CLEAR Urine pH 6.0 Ur Specific [place] 1.015 Urine Protein NEGATIVE Urine Glucose (UA) NEGATIVE Urine Ketones NEGATIVE Urine Blood NEGATIVE Urine Nitrite NEGATIVE Ur Leukocyte Esterase NEGATIVE Urine WBC (Auto) 1 Urine RBC (Auto) 0 Impressions: Head CT 01/29/17 13:29 IMPRESSION: No acute abnormality in the brain. EVIDENCE OF ACUTE STROKE: NO. Assessment & Plan - Diagnosis (1) Vomiting Qualifiers: Vomiting type: unspecified Vomiting Intractability: intractable Nausea presence: with nausea Qualified Code(s): R11.2 - Nausea with vomiting, unspecified Plan: Intractable nausea and vomiting associated with dizziness possibly due to brainstem stroke versus viral syndrome symptoms (unlikely given that this has been going on for 2 weeks). Brain MRI MRA pending. We will continue symptomatic management using antiemetics. (2) Dizziness Is this a current diagnosis for this admission?: Yes Plan: Management as above. Follow orthostatic vitals. Fall precautions. Consult PT OT (3) Unable to ambulate Is this a current diagnosis for this admission?: Yes Plan: See above (4) COPD (chronic obstructive pulmonary disease) Qualifiers: COPD type: chronic bronchitis Is this a current diagnosis for this admission?: Yes Plan: COPD without acute exacerbation from a smoker. Continue home nebulizer treatment (5) Diabetes mellitus Qualifiers: Diabetes mellitus type: type 2 Diabetes mellitus complication status: without complication Diabetes mellitus care home insulin use: without care home use Qualified Code(s): E11.9 - Type 2 diabetes mellitus without complications Is this a current diagnosis for this admission?: Yes Plan: Diabetes mellitus type 2, not requiring long-term use of insulin, with no specific complications. A1c pending. Hold oral hypoglycemic agents instead patient on basal Lantus with correctional subcutaneous insulin (6) Essential hypertension Plan: Continue current home medications and add hydralazine 10 mg IV as needed - Time Time Spent: 50 to 70 Minutes Medications reviewed and adjusted accordingly: Yes Anticipated discharge: Home with Homehealth - Inpatient Certification Medical Necessity: Failure to Improve With Outpatient Therapy
[2017-01-29] MEDS ORDERED: LORAZEPAM INJ 2 MG/1 ML VIAL IV PRN (18:20)
[2017-01-29] MEDS ORDERED: METOCLOPRAMIDE HCL 10 MG TABLET PO PRN (18:24)
--- NOTE | 2017-01-29 18:30 | RADIOLOGY REPORT (SQ) ---
EXAM DESCRIPTION: MRA HEAD WITHOUT COMPLETED DATE/TIME: 01/29/2017 6:17 pm REASON FOR STUDY: dizziness, intractable vomiting, ?cerebellar strok COMPARISON: None. TECHNIQUE: Axial 3-D [id number] acquisition imaging performed through the brain in the area of t he [place]. Images reformatted using 3-D MIPS. LIMITATIONS: None. FINDINGS: SOURCE IMAGES: No unexpected findings on source images. No large masses. 3-D MIP: No aneurysm. No occlusions. No significant stenosis. OTHER: No other significant finding. IMPRESSION: NORMAL MRA OF THE [place] OF [place]. TECHNICAL DOCUMENTATION: JOB ID: [id number] [employer]- All Rights Reserved
--- NOTE | 2017-01-29 18:35 | RADIOLOGY REPORT (SQ) ---
EXAM DESCRIPTION: MRI HEAD WITHOUT COMPLETED DATE/TIME: 01/29/2017 6:17 pm REASON FOR STUDY: dizziness, intractable vomiting, ?cerebellar strok COMPARISON: Brain CT scan dated 01/29/2017 TECHNIQUE: Multiplanar imaging includes non-contrasted T1, T2, FLAIR, and Diffusion with ADC map seq uences. Images stored on PACS. LIMITATIONS: None. FINDINGS: ANATOMY: No anomalies. Normal vascular flow voids. Pituitary fossa normal. CSF SPACES: Prominent. No hemorrhage. CEREBRUM: A few high-signal intensity lesions scattered throughout the white matter on FLAIR imaging with distribution suggesting chronic micro-vascular ischemic change. Sulci and gyri normal in size a nd contour. No evidence of hemorrhage, mass or extraaxial fluid collection. POSTERIOR FOSSA: No signal alteration. No hemorrhage. No edema, masses or mass effect. Internal kerri tory canals, cerebello-pontine angles, mastoids normal. DIFFUSION: Negative for acute or sub-acute infarction. ORBITS: No masses. Globes normal. PARANASAL SINUSES: No fluid levels. Mucosa normal. OTHER: No other significant finding. IMPRESSION: MINIMAL MICROVASCULAR ISCHEMIC CHANGE. Cortical atrophy. Other findings as noted above . EVIDENCE OF ACUTE STROKE: NO. TECHNICAL DOCUMENTATION: JOB ID: [id number] [employer]- All Rights Reserved
[2017-01-29] MEDS: MONTELUKAST SODIUM 10 MG TABLET PO SCH (19:26)
[2017-01-29 19:44] LABS: PROTHROMBIN TIME 12.9 SEC (11.4-15.4)
[2017-01-29 19:57] LABS: CREATINE KINASE MB 1.97 ng/mL (<4.55); TROPONIN I 0.016 ng/mL
[2017-01-29] MEDS: IPRATROPIUM/ALBUTEROL 0.5-2.5 MG/3 ML AMPUL NEB SCH (20:06)
[2017-01-29] MEDS ORDERED: ATORVASTATIN CALCIUM 40 MG TABLET PO ONE (20:30)
[2017-01-29 20:41] LABS: URINE BARBITURATES SCREEN NEGATIVE; URINE METHADONE SCREEN NEGATIVE; URINE OPIATES LOW NEGATIVE; URINE PHENCYCLIDINE SCREEN NEGATIVE
[2017-01-29] MEDS ORDERED: ISOSORBIDE DINITRATE 40 MG PO SCH (22:00)
[2017-01-29] MEDS ORDERED: PANTOPRAZOLE SODIUM 40 MG VIAL IV SCH (22:00)
[2017-01-29] MEDS: ISOSORBIDE DINITRATE 20 MG TABLET PO SCH (22:55)
[2017-01-29] MEDS: FLUTICASONE/SALMETEROL DISKUS 250-50 MCG/DOSE IH SCH (22:55)
[2017-01-29] MEDS: INSULIN GLARGINE,HUM.REC.ANLOG 300 UNIT/3 ML INSULN.PEN SUBCUT SCH (22:55)
[2017-01-29] MEDS: HEPARIN SOD (PORCINE) 5,000 UNIT/ML 1 ML SYRINGE SUBCUT SCH (22:55)
[2017-01-30 01:57] LABS: CREATINE KINASE MB 1.24 ng/mL (<4.55); TROPONIN I 0.018 ng/mL
[2017-01-30] MEDS: HEPARIN SOD (PORCINE) 5,000 UNIT/ML 1 ML SYRINGE SUBCUT SCH ×3 (05:17→21:32)
[2017-01-30] MEDS: ISOSORBIDE DINITRATE 20 MG TABLET PO SCH ×3 (05:17→21:31)
[2017-01-30] MEDS: LEVOTHYROXINE SODIUM 0.075 MG TABLET PO SCH (05:17)
[2017-01-30 08:06] LABS: ABSOLUTE BASOPHILS # (AUTO) 0.1 10^3/uL (0.0-0.2); ABSOLUTE EOSINOPHILS # (AUTO) 0.1 10^3/uL (0.0-0.6); ABSOLUTE MONOCYTES (AUTO) 0.4 10^3/uL (0.1-1.4); ABSOLUTE NEUT (AUTO) 3.3 10^3/uL (1.7-8.2); BASOPHILS % (AUTO) 1.1 % (0-2); HEMATOCRIT 39.1 % (37.9-51.0); HEMOGLOBIN 13.2 g/dL (13.5-17.0); HGB HCT DIFFERENCE 0.5; LYMPHOCYTES % (AUTO) 20.2 % (13-45); MEAN CORPUSCULAR HGB CONC 33.9 g/dL (32.0-36.0); MEAN CORPUSCULAR VOLUME 97 fl (80-97); RED BLOOD COUNT 4.02 10^6/uL (4.35-5.55); RED CELL DISTRIBUTION WIDTH 14.4 % (11.5-14.0); SEGMENTED NEUTROPHILS % (AUTO) 68.7 % (42-78); WHITE BLOOD COUNT 4.8 10^3/uL (4.0-10.5)
[2017-01-30 08:30] LABS: ALANINE AMINOTRANSFERASE 40 U/L (21-72); ALBUMIN 3.5 g/dL (3.5-5.0); ALKALINE PHOSPHATASE 76 U/L (38-126); AMYLASE 51 U/L (30-110); ANION GAP 10 (5-19); ASPARTATE AMINO TRANSFERASE 18 U/L (17-59); BILIRUBIN,DIRECT 0.4 mg/dL (0.0-0.4); BILIRUBIN,TOTAL 0.5 mg/dL (0.2-1.3); BLOOD UREA NITROGEN 12 mg/dL (7-20); CALCIUM 9.5 mg/dL (8.4-10.2); CARBON DIOXIDE 27 mmol/L (22-30); CHLORIDE 104 mmol/L (98-107); CREATINE KINASE 44 U/L (55-170); CREATININE RESULT 0.82 mg/dL (0.52-1.25); GLUCOSE 118 mg/dL (75-110); LIPASE 176.1 U/L (23-300); MAGNESIUM 1.6 mg/dL (1.6-2.3); POTASSIUM 3.8 mmol/L (3.6-5.0); SODIUM 141.1 mmol/L (137-145); TOTAL PROTEIN 5.7 g/dL (6.3-8.2)
[2017-01-30 08:39] LABS: CREATINE KINASE MB 1.22 ng/mL (<4.55); TROPONIN I 0.017 ng/mL
[2017-01-30] MEDS: FERROUS SULFATE 325 MG TABLET PO SCH (08:40)
[2017-01-30] MEDS ORDERED: MECLIZINE HCL 25 MG TABLET PO PRN (09:10)
[2017-01-30] MEDS: IPRATROPIUM/ALBUTEROL 0.5-2.5 MG/3 ML AMPUL NEB SCH ×4 (09:23→20:21)
[2017-01-30] MEDS ORDERED: LANSOPRAZOLE 30 MG TAB.RAP.DR PO ONE (09:45)
[2017-01-30] MEDS ORDERED: ONDANSETRON HCL INJ/PF 4 MG/2 ML SDV IV PRN (10:00)
[2017-01-30] MEDS ORDERED: [UNRECOGNIZED DRUG - OTHER] PO SCH (10:00)
[2017-01-30] MEDS ORDERED: HYDRALAZINE HCL INJ/PF 20 MG/1 ML SDV IV PRN (10:00)
[2017-01-30] MEDS ORDERED: LOSARTAN POTASSIUM 25 MG TABLET PO SCH (10:00)
[2017-01-30] MEDS ORDERED: HYDROCHLOROTHIAZIDE 12.5 MG CAPSULE PO SCH (10:00)
[2017-01-30] MEDS: FLUTICASONE/SALMETEROL DISKUS 250-50 MCG/DOSE IH SCH ×2 (11:21→21:32)
[2017-01-30] MEDS: ASPIRIN 325 MG TABLET PO SCH (11:21)
[2017-01-30] MEDS: NITROGLYCERIN 10 MG (0.4 MG/HR) PATCH.TD24 TOP SCH (11:22)
--- NOTE | 2017-01-30 12:07 | PDOC PROGRESS REPORT ---
Subjective Progress Note for:: 01/30/17 Subjective:: Hospital day 1: Follow-up visit for intractable nausea vomiting associated with dizziness Jai Zhou is an 89-year-old male with history of congestive heart failure coronary artery disease status post PCI with differential with 3 different angioplasties, status post coronary artery bypass graft surgery and status post PCI with stent placement, peripheral artery disease, COPD, diabetes mellitus type 2, peptic ulcer disease. The patient was admitted on 01/29/2017 with a history of significant nausea and vomiting of about 2 weeks duration. He had failed outpatient management. Radiologic workup including CT scan MRI and MRA of the brain did not reveal any acute abnormality. The patient was admitted for symptomatic management with aggressive antiemetic treatment as well as IV fluids. Overnight events noted. Patient reports feeling much better this morning, he did walk with physical therapist in the hallway this morning. So far he has not had any nausea vomiting or dizziness. He is sitting by the bedside eating his breakfast. He denies any chest pain shortness of breath any focal neurologic deficit. Physical Exam Vital Signs: Temp Pulse Resp BP Pulse Ox 98.4 F 77 16 124/38 L 100 01/30/17 04:14 01/30/17 07:00 01/30/17 04:14 01/30/17 04:14 01/30/17 04:14 Intake & Output 01/29/17 01/30/17 01/31/17 06:59 06:59 06:59 Intake Total 1230 Output Total 775 Balance 455 Weight 68.3 kg General appearance: PRESENT: no acute distress, cooperative, well-nourished Head exam: PRESENT: atraumatic, normocephalic Eye exam: PRESENT: conjunctiva pink, EOMI, PERRLA Respiratory exam: PRESENT: clear to auscultation staci, symmetrical, unlabored. ABSENT: accessory muscle use, chest wall tenderness, crackles, decreased breath sounds, prolonged expiratory phas, rales, retraction, rhonchi, stridor, tachypnea, wheezes, other Cardiovascular exam: PRESENT: RRR, +S1, +S2 Pulses: ABSENT: normal carotid pulses, normal radial pulses, normal femoral pulses, normal dorsalis pedis pul, +1 pedal pulses bilateral, +2 pedal pulses bilateral, other GI/Abdominal exam: PRESENT: normal bowel sounds, rebound. ABSENT: ascites, diminished bowel sounds, distended, firm, guarding, hernia, hyperactive bowel sounds, hypoactive bowel sounds, mass, Colón's sign, organolmegaly, rigid, soft , tenderness, other Extremities exam: PRESENT: full ROM. ABSENT: calf tenderness, clubbing, joint swelling, pedal edema, tenderness, +1 edema, +2 edema, other Neurological exam: PRESENT: alert, awake, oriented to person, oriented to place , oriented to time, oriented to situation, reflexes normal, CN II-XII grossly intact, normal gait Psychiatric exam: PRESENT: appropriate affect, normal mood Results Laboratory Results: 01/30/17 07:45 01/30/17 07:45 01/29/17 01/30/17 01/30/17 19:15 07:45 07:45 WBC 4.8 RBC 4.02 L Hgb 13.2 L Hct 39.1 MCV 97 MCH 33.0 MCHC 33.9 RDW 14.4 H Plt Count 193 Seg Neutrophils % 68.7 Lymphocytes % 20.2 Monocytes % 8.0 Eosinophils % 2.0 Basophils % 1.1 Absolute Neutrophils 3.3 Absolute Lymphocytes 1.0 Absolute Monocytes 0.4 Absolute Eosinophils 0.1 Absolute Basophils 0.1 Sodium 141.1 Potassium 3.8 Chloride 104 Carbon Dioxide 27 Anion Gap 10 BUN 12 Creatinine 0.82 Est GFR ( Amer) > 60 Est GFR (Non-Af Amer) > 60 Glucose 118 H Calcium 9.5 Magnesium 1.6 Total Bilirubin 0.5 AST 18 ALT 40 Alkaline Phosphatase 76 Total Protein 5.7 L Albumin 3.5 Amylase 51 Lipase 176.1 TSH 2.95 01/29/17 01/29/17 01/30/17 19:15 19:15 01:15 Creatine Kinase 58 42 L CK-MB (CK-2) 1.97 Troponin I 0.016 01/30/17 01/30/17 01/30/17 01:15 07:45 07:45 Creatine Kinase 44 L CK-MB (CK-2) 1.24 1.22 Troponin I 0.018 0.017 EKG Comments: Telemetry strip with PACs Impressions: Head CT 01/29/17 13:29 IMPRESSION: No acute abnormality in the brain. EVIDENCE OF ACUTE STROKE: NO. Brain MRI with MRA 01/29/17 16:51 IMPRESSION: NORMAL MRA OF THE [place] OF [place]. Head MRI 01/29/17 16:51 IMPRESSION: MINIMAL MICROVASCULAR ISCHEMIC CHANGE. Cortical atrophy. Other findings as noted above. EVIDENCE OF ACUTE STROKE: NO. Assessment & Plan - Diagnosis (1) Vomiting Qualifiers: Vomiting type: unspecified Vomiting Intractability: intractable Nausea presence: with nausea Qualified Code(s): R11.2 - Nausea with vomiting, unspecified Plan: Intractable nausea and vomiting associated with dizziness possibly due to brainstem stroke versus viral syndrome symptoms (unlikely given that this has been going on for 2 weeks). Brain MRI MRA negative for any acute abnormality. We will continue symptomatic management using antiemetics. (2) Dizziness Is this a current diagnosis for this admission?: Yes Plan: Management as above. Orthostatic vitals normal. Continue fall precautions precautions and PT OT. Patient may benefit from repositioning maneuvers with physical therapy: Outpatient as not available inpatient (3) Unable to ambulate Is this a current diagnosis for this admission?: Yes Plan: See above (4) COPD (chronic obstructive pulmonary disease) Qualifiers: COPD type: chronic bronchitis Is this a current diagnosis for this admission?: Yes Plan: COPD without acute exacerbation from a smoker. Stable. Continue home nebulizer treatment (5) Diabetes mellitus Qualifiers: Diabetes mellitus type: type 2 Diabetes mellitus complication status: without complication Diabetes mellitus longterm insulin use: without longterm use Qualified Code(s): E11.9 - Type 2 diabetes mellitus without complications Is this a current diagnosis for this admission?: Yes Plan: Diabetes mellitus type 2, not requiring long-term use of insulin, with no specific complications, controlled with A1c 5.8. Hold oral hypoglycemic agents. Continue basal Lantus with correctional subcutaneous insulin (6) Essential hypertension Plan: Continue current home medications and add hydralazine 10 mg IV as needed - Time Time Spent with patient: 35 or more minutes Medications reviewed and adjusted accordingly: Yes Anticipated discharge: Home Within: within 24 hours - Inpatient Certification Medical Necessity: Failure to Improve With Outpatient Therapy, Risk of Complication if Not Cared For in Hospital - Patient is very concerned about being discharged home today given that the symptoms have been going on for about 2 weeks. He would like to stay in the hospital for another day
[2017-01-30] MEDS ORDERED: DOCUSATE SODIUM 100 MG CAPSULE PO ONE (16:00)
[2017-01-30] MEDS: LANSOPRAZOLE 30 MG TAB.RAP.DR PO SCH (16:54)
[2017-01-30] MEDS: MONTELUKAST SODIUM 10 MG TABLET PO SCH (17:07)
[2017-01-30] MEDS: INSULIN GLARGINE,HUM.REC.ANLOG 300 UNIT/3 ML INSULN.PEN SUBCUT SCH (21:32)
[2017-01-31 03:58] VITALS: BP 152/45
[2017-01-31] MEDS: LANSOPRAZOLE 30 MG TAB.RAP.DR PO SCH (05:32)
[2017-01-31] MEDS: ISOSORBIDE DINITRATE 20 MG TABLET PO SCH (05:32)
[2017-01-31] MEDS: LEVOTHYROXINE SODIUM 0.075 MG TABLET PO SCH (05:32)
[2017-01-31] MEDS: HEPARIN SOD (PORCINE) 5,000 UNIT/ML 1 ML SYRINGE SUBCUT SCH (05:51)
[2017-01-31] MEDS: IPRATROPIUM/ALBUTEROL 0.5-2.5 MG/3 ML AMPUL NEB SCH ×2 (07:54→12:16)
[2017-01-31] MEDS: NITROGLYCERIN 10 MG (0.4 MG/HR) PATCH.TD24 TOP SCH (09:15)
[2017-01-31] MEDS: ASPIRIN 325 MG TABLET PO SCH (09:15)
[2017-01-31] MEDS: FLUTICASONE/SALMETEROL DISKUS 250-50 MCG/DOSE IH SCH (09:15)
[2017-01-31] MEDS: FERROUS SULFATE 325 MG TABLET PO SCH (09:16)
[2017-01-31] MEDS ORDERED: DOCUSATE SODIUM 100 MG CAPSULE PO SCH (10:00)
--- NOTE | 2017-01-31 10:25 | PDOC DISCHARGE SUMMARY ---
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 Is this a current diagnosis for this admission?: Yes - Additional Information Discharge Diet: Diabetic - Discharge home with home health Discharge Activity: Activity As Tolerated Home Medications: Albuterol Sulfate [Proair HFA Inhalation Aerosol 8.5 gm MDI] 2 puff IH Q6HP PRN 09/08/16 Doxycycline Hyclate [Vibramycin 100 mg Tablet] 100 mg PO DAILY 09/08/16 Ferrous Sulfate [Feosol 325 mg Tablet] 325 mg PO BID 09/08/16 Fluticasone Propionate [Flonase Nasal [place] 50 Mcg/[place] 16 gm] 1 spray NASL Q12 09/08/16 Fluticasone/Salmeterol [Advair 250-50 Diskus 14 Dose/Diskus] 1 puff IH Q12 09/08 Glimepiride [Amaryl 1 mg Tablet] 1 mg PO BID 09/08/16 Isosorbide Dinitrate [Dilatrate-Sr] 40 mg PO Q8 09/08/16 Levothyroxine Sodium [Synthroid 0.075 mg Tablet] 0.075 mg PO QAM 09/08/16 Loratadine [Claritin 10 mg Tablet] 10 mg PO DAILY 09/08/16 Montelukast Sodium [Singulair 10 mg Tablet] 10 mg PO QPM 09/08/16 Nitroglycerin [Nitro-Dur 10 mg (0.4MG/Hr) Transdermal Patch] 1 patch TOP DAILY 09/08/16 Volin-3 Fatty Acids/Fish Oil [Fish Oil 1,000 mg Capsule] 2 cap PO DAILY Pioglitazone HCl/Metformin HCl [Actoplus Met 15 mg-500 mg Tab] 2 tab PO DAILY Tamsulosin HCl [Flomax 0.4 mg Cap.sr] 0.4 mg PO DAILY 09/08/16 Telmisartan/Hydrochlorothiazid [Telmisartan-Hctz 80-12.5 mg Tb] 1 tab PO DAILY 09/08/16 Tiotropium [place] [Spiriva Handihaler 5 Cap/Kit (18 Mcg/Cap)] 1 puff IH DAILY 09/08/16 Aspirin [Aspirin 325 mg Tablet] 325 mg PO DAILY tablet 09/09/16 Metoclopramide HCl [Reglan] 5 mg PO BIDP PRN #12 tablet 01/23/17 Benzonatate 100 mg PO Q8HP PRN MDD FILLED 01/31 FOR 20DS 01/29/17 Alirocumab [Praluent Pen] 75 mg [id number] 01/30/17 Latanoprost [Xalatan 0.005% Oph Soln 2.5 ml] 1 drop OU QHS 01/30/17 Meperidine HCl [Meperitab] 50 mg PO Q12 MDD FOR CHRONIC PAIN 01/30/17 Mirabegron [Myrbetriq] 50 mg PO DAILY 01/30/17 Nitrofurantoin Macrocrystal [Macrodantin] 50 mg PO Q12 MDD FILLED 01/21 FOR 10DS 01/30/17 Ondansetron [Zofran Odt 4 mg Tablet] 4 mg PO Q8HP PRN MDD FILLED 01/21 FOR 10DS 01/30/17 Vit 40/Iron/Folic/Dha [ Multi-Dha Softgel] 1 each PO DAILY Probenecid/Colchicine [Probenecid-Colchicine Tabs] 1 tab PO BID 01/30/17 Tramadol HCl [Ultram 50 mg Tablet] 50 mg PO Q6HP PRN 01/30/17 Meclizine HCl [Antivert 25 mg Tablet] 25 mg PO Q8HP PRN #30 tablet 01/31/17 Pramipexole Di-HCl [Mirapex 0.5 mg Tablet] 0.5 mg PO HSP PRN tablet 01/31/17 History of Present Illness Patient complains of: Nausea vomiting and dizziness History of Present Illness: CHACHO WOO JR is a 89 year old male with history of congestive heart failure, coronary artery disease status post PCI with 3 different angioplasty, status post coronary artery bypass graft surgery, status post PCI with stent, hypertension, peripheral artery disease, COPD, diabetes mellitus type 2, peptic ulcer disease. The patient presented to the emergency room complaining of significant nausea and vomiting of about 2 weeks. He was initially seen by his family doctor in the office and subsequently in the emergency room about a week ago. He was thought to have urinary tract infection for which she was given antibiotics. He was also given a prescription for Reglan and Zofran. The patient states that his symptoms have persisted. The nausea and vomiting gets worse when he attempts to stand up and he admits to feeling a bit lightheaded. He denies any shortness of breath chest pain any diarrhea or abdominal pain, denies any focal neurologic symptoms, no seizures, no headaches. He has not had any fever or chills at home. Today in the emergency room, initial workup was grossly normal including a head CT scan which did not show any acute abnormality and the patient was given Zofran as well as Ativan. When the patient attempted to walk from the bed to the door he got lightheaded and started having significant nausea and vomiting. He denied having any vitiligo. A brain MRI/MRA is pending. The patient will be admitted to observation for further evaluation Hospital Course Hospital Course: The patient was admitted on 01/29/2017 with 2 weeks history of significant nausea and vomiting. He has failed outpatient management. He was admitted for symptomatic management with aggressive antiemetic treatment as well as IV fluid resuscitation. CT scan of the brain, MRI and MRA of the brain did not reveal any acute abnormalities. The patient is significantly improved with symptomatic management. He is willing to be discharged home today to follow up with his primary care physician. We have recommended outpatient follow-up with ENT for his right ear hearing loss as well as for vertigo. He will be discharged home on meclizine Physical Exam Vital Signs: Temp Pulse Resp BP Pulse Ox 98.0 F 71 17 152/45 H 90 L 01/31/17 03:57 01/31/17 07:00 01/31/17 03:57 01/31/17 03:57 01/31/17 03:57 Intake & Output 01/30/17 01/31/17 02/01/17 06:59 06:59 06:59 Intake Total 1230 4005 Output Total 775 475 Balance 455 3530 Weight 68.3 kg General appearance: PRESENT: no acute distress, cooperative, well-developed Head exam: PRESENT: atraumatic, normocephalic Eye exam: PRESENT: conjunctiva pink Respiratory exam: PRESENT: clear to auscultation staci, symmetrical. ABSENT: accessory muscle use, chest wall tenderness, crackles, decreased breath sounds, prolonged expiratory phas, rales, retraction, rhonchi, stridor, tachypnea, unlabored, wheezes, other Cardiovascular exam: PRESENT: RRR, +S1, +S2. ABSENT: bradycardia, clicks, diastolic murmur, gallop, irregular rhythm, rubs, systolic murmur, tachycardia, other GI/Abdominal exam: PRESENT: normal bowel sounds, soft. ABSENT: ascites, diminished bowel sounds, distended, firm, guarding, hernia, hyperactive bowel sounds, hypoactive bowel sounds, mass, Colón's sign, organolmegaly, rebound, rigid, tenderness, other Extremities exam: PRESENT: full ROM. ABSENT: calf tenderness, clubbing, joint swelling, pedal edema, tenderness, +1 edema, +2 edema, other Musculoskeletal exam: PRESENT: ambulatory, full ROM Neurological exam: PRESENT: alert, awake, oriented to person, oriented to place , oriented to time, oriented to situation, reflexes normal, CN II-XII grossly intact, normal gait Psychiatric exam: PRESENT: anxious Results Laboratory Results: 01/30/17 07:45 01/30/17 07:45 01/29/17 01/29/17 01/30/17 19:15 19:15 01:15 Creatine Kinase 58 42 L CK-MB (CK-2) 1.97 Troponin I 0.016 01/30/17 01/30/17 01/30/17 01:15 07:45 07:45 Creatine Kinase 44 L CK-MB (CK-2) 1.24 1.22 Troponin I 0.018 0.017 Impressions: Head CT 01/29/17 13:29 IMPRESSION: No acute abnormality in the brain. EVIDENCE OF ACUTE STROKE: NO. Brain MRI with MRA 01/29/17 16:51 IMPRESSION: NORMAL MRA OF THE [place] OF FLOWERS. Head MRI 01/29/17 16:51 IMPRESSION: MINIMAL MICROVASCULAR ISCHEMIC CHANGE. Cortical atrophy. Other findings as noted above. EVIDENCE OF ACUTE STROKE: NO. Status: Image reviewed by me Qualifiers PATEINT BEING DISCHARGED WITH ANY OF THE FOLLOWING DIAGNOSIS?: No Plan Time Spent: Greater than 30 Minutes - Patient will be discharged home with home health
== END 2017-01-31 11:52 | disposition home health service (06) | DRG 149 ==
LOC: ER 11:36 → EH 18:01 → 4N 20:59
PROVIDERS: ADMIT Hospitalist; ATTEND Emergency Medicine
DX: R42 Dizziness and giddiness (principal); J44.9 Chronic obstructive pulmonary disease, unspecified; R11.2 Nausea with vomiting, unspecified; R26.2 Difficulty in walking, not elsewhere classified; H91.91 Unspecified hearing loss, right ear; K21.9 Gastro-esophageal reflux disease without esophagitis; I25.10 Atherosclerotic heart disease of native coronary artery without angina pectoris; M19.90 Unspecified osteoarthritis, unspecified site; I11.0 Hypertensive heart disease with heart failure; I50.9 Heart failure, unspecified; E11.9 Type 2 diabetes mellitus without complications; I73.9 Peripheral vascular disease, unspecified; Z95.1 Presence of aortocoronary bypass graft; Z79.82 Long term (current) use of aspirin; Z79.899 Other long term (current) drug therapy; Z87.11 Personal history of peptic ulcer disease; Z87.891 Personal history of nicotine dependence; Z88.6 Allergy status to analgesic agent; Z79.84 Long term (current) use of oral hypoglycemic drugs; Z95.5 Presence of coronary angioplasty implant and graft
CPT/HCPCS: 36415; 70450; 70544; 70551; 80053; 80307; 81001; 82150; 82550; 82553; 82962; 83036; 83690; 83735; 84443; 84484; 85025; 85610; 85730; 94640; 96361; 96374; 99285; G8978-GP; G8979-GP; G8987-GO; G8988-GO; G8989-GO; J1644; J1815; J2060; J3490; J7030; J7620; S0164

== ENCOUNTER 2017-02-02 09:41 | Emergency (ER) | payer MEDICARE, OTHER ==
[2017-02-02 09:49] VITALS: BP 144/74
[2017-02-02] MEDS ORDERED: DOCUSATE SODIUM 100 MG CAPSULE BTH_EAR ONE (10:07)
--- NOTE | 2017-02-02 10:20 | ER Document Report ---
HPI - HPI Pain Level: Denies Notes: Patient is an 89-year-old male who presents the ED complaining of nausea and vomiting with sitting or standing. Patient has been eating sitting and standing as well which causes him to have nausea and vomiting. Son states that he was able to keep some food down over the weekend. Patient was discharged from the hospital with vertigo and was told to see ENT. Patient was admitted about 4 days ago and had a complete workup performed yielding no results. Pt states that while lying supine, he is asymptomatic. Pt states that he does not have any pain, fever, or recent illness otherwise. Pt is scheduled to meet with his PCM tomorrow to get a referral to ENT. + cannot hear when he occludes his left ear. No other concerns or complaints. Denies any headache, fever, head injury, neck pain, URI, sore throat, chest pain, palpitations, syncope, cough, shortness of breath, wheeze, dyspnea, abdominal pain, diarrhea, urinary retention, dysuria, hematuria, back pain, loss of control of bowel or bladder, numbness/tingling, saddle anesthesia, muscle paralysis/weakness, or rash. - ROS Notes: REVIEW OF SYSTEMS: CONSTITUTIONAL : Denies fever, chills, or sweats. Denies recent illness. EENT: see hpi (ear). Denies eye, throat, or mouth pain or symptoms. Denies nasal or sinus congestion or discharge. Denies throat, tongue, or mouth swelling or difficulty swallowing. CARDIOVASCULAR: Denies chest pain. Denies palpitations or racing or irregular heart beat. Denies ankle edema. RESPIRATORY: Denies cough, cold, or chest congestion. Denies shortness of breath, difficulty breathing, or wheezing. GASTROINTESTINAL: see hpi GENITOURINARY: Denies difficulty urinating, painful urination, burning, frequency, blood in urine, or discharge. MUSCULOSKELETAL: Denies back or neck pain or stiffness. Denies joint pain or swelling. SKIN: Denies rash, lesions or sores. NEUROLOGICAL: Denies confusion or altered mental status. Denies passing out or loss of consciousness. Denies dizziness or lightheadedness. Denies headache. Denies weakness or paralysis or loss of use of either side. Denies problems with gait or speech. Denies sensory loss, numbness, or tingling. Denies seizures. PSYCHIATRIC: Denies anxiety or stress. Denies depression, suicidal ideation, or homicidal ideation. ALL OTHER SYSTEMS REVIEWED AND NEGATIVE. Dictation was performed using [employer] voice recognition software - REPRODUCTIVE Reproductive: DENIES: : Past Medical History - Social History Smoking Status: Unknown if Ever Smoked Family History: DM - Past Medical History Cardiac Medical History: Reports: Hx Congestive Heart Failure, Hx Coronary Artery Disease, Hx Hypertension, Hx Peripheral Vascular Disease Denies: Hx Heart Attack Pulmonary Medical History: Reports: Hx Asthma, Hx Bronchitis, Hx COPD Denies: Hx Pneumonia, Hx Tuberculosis Neurological Medical History: Denies: Hx Cerebrovascular Accident, Hx Seizures Endocrine Medical History: Reports: Hx Diabetes Mellitus Type 2 Renal/ Medical History: Denies: Hx Peritoneal Dialysis GI Medical History: Reports: Hx Gastroesophageal Reflux Disease Musculoskeltal Medical History: Reports Hx Arthritis, Reports Hx Muscle Weakness Psychiatric Medical History: Denies: Hx Depression Infectious Medical History: Past Surgical History: Reports: Hx Cardiac Catheterization - With 3 angioplasties., Hx Coronary Artery Bypass Graft, Hx Coronary Stent, Hx Inguinal Hernia - Bilateral inguinal hernia repairs in 1982, Hx Orthopedic Surgery - 5 cervical spine procedures, Hx Vascular Surgery - Aortobifem grafting by history. Denies: Hx Pacemaker - Immunizations Hx Diphtheria, Pertussis, Tetanus Vaccination: Yes Hx Pneumococcal Vaccination: 03/17/11 Vertical Provider Document - CONSTITUTIONAL Agree With Documented VS: Yes Notes: PHYSICAL EXAMINATION: GENERAL: Well-appearing, well-nourished and in no acute distress. HEAD: Atraumatic, normocephalic. EYES: Pupils equal round and reactive to light, extraocular movements intact, sclera anicteric, conjunctiva are normal. ENT: Cerumen impaction b/l, unable to visualize TM's. EAC on rt is also mildly inflamed. Nares patent and without discharge. oropharynx clear without exudates. No tonsilar hypertrophy or erythema. Moist mucous membranes. No sinus tenderness. NECK: Normal range of motion, supple without lymphadenopathy. No rigidity/ meningismus. LUNGS: Breath sounds clear to auscultation bilaterally and equal. No wheezes rales or rhonchi. HEART: Regular rate and rhythm without murmurs, rubs, gallops. ABDOMEN: Soft, nontender, nondistended abdomen. No guarding, no rebound. No masses appreciated. Normal bowel sounds present. No CVA tenderness bilaterally. Musculoskeletal: FROM to passive/active. Strength 5+/5. Extremities: No cyanosis, clubbing, or edema b/l. Peripheral pulses 2+. Capillary refill less than 3 seconds. NEUROLOGICAL: Cranial nerves grossly intact. Normal speech, normal gait. Normal sensory, motor exams PSYCH: Normal mood, normal affect. SKIN: Warm, Dry, normal turgor, no rashes or lesions noted. - INFECTION CONTROL TRAVEL OUTSIDE OF THE [place] IN LAST 30 DAYS: No - RESPIRATORY O2 Sat by Pulse Oximetry: 91 Course - Re-evaluation Re-evalutation: 02/02/17 12:12 ear curette performed, cleaned the left EAC. Rt EAC had some wax removal, but there continues to be a wall of black solidified wax. we will try colace and irrigation again, then try curette again. Pt tolerating procedure well w/o complications. 02/02/17 14:26 Irrigation and curette performed. More cerumen removed, but there continues to be a black dry cerumen wall near the TM and occluding view. I will defer completion of cleaning to the ENT. We did sit the patient upright and he did not become dizzy which has improved since his arrival. Abd XR did show probable constipation. Pt has not had a BM in approx 5 days. Family would like an enema performed here in the ED. Enema ordered. Motrin given PO. 02/02/17 16:39 Patient is an afebrile, well-hydrated, 89-year-old male who presents the ED with constipation and vertigo. Vitals are stable. PE is otherwise unremarkable. Low suspicion/risk for acute appendicitis, bowel obstruction, acute cholecystitis, perforated diverticulitis, incarcerated hernia, pancreatitis, perforated ulcer, peritonitis, sepsis, testicular torsion, or other systemic emergent condition at this time. Patient is aware that his condition can change from initial presentation and he needs to monitor symptoms closely and seek medical attention if any acute changes. An enema was given today and pt was to evacuate a lot of stool. I will send him home with ciprodex drops for the rt ear. Conservative measures otherwise for symptoms. Recheck with PCM in 3-5 days. I would like the patient to contact ENT tomorrow to schedule an appointment. Return to the ED with any worsening/concerning symptoms otherwise as reviewed in discharge. Patient/family in agreement. - Vital Signs Vital signs: Temp Pulse Resp BP Pulse Ox 98.1 F 83 20 144/74 H 91 L 02/02/17 09:47 02/02/17 09:47 02/02/17 09:47 02/02/17 09:47 02/02/17 09:47 - Laboratory Result Diagrams: 02/02/17 10:40 02/02/17 10:40 Discharge - Discharge Clinical Impression: Vertigo, Impacted cerumen of right ear Constipation Qualifiers: Constipation type: unspecified constipation type Qualified Code(s): K59.00 - Constipation, unspecified Condition: Stable Disposition: HOME, SELF-CARE Instructions: Cerumen Impaction ([facility]), Constipation ([facility]), Use of Ear Drops ( [facility]), Vertigo ([facility]) Additional Instructions: Maintain adequate fluid and food intake increase fiber and water in diet Zofran as needed, continue meclizine for dizziness ibuprofen if needed Use ear drops as directed Monitor for any worsening symptoms Recheck with your PCM in 3-5 days Call ENT tomorrow to schedule a f/u for further evaluation and management Return to the ED with any worsening symptoms and/or development of fever, headache, chest pain, palpitations, syncope, shortness of breath, trouble breathing, abdominal pain, n/v/d, blood in stool/urine, weakness, or other worsening symptoms that are concerning to you. Prescriptions: Neomy Sulf/Polymyx B Sulf/Hc [Twgnjbrq-Fegjtggvn-Rz Ear Soln] 4 drop OT TID #1 bottle Ondansetron [Zofran Odt 4 mg Tablet] 1 - 2 tab PO Q4H PRN #15 tab.rapdis PRN Reason: For Nausea/Vomiting Forms: Elevated Blood Pressure Referrals: LINDSAY BUCKLEY DO [ASSOCIATE] - Follow up in 3-5 days JERALD WHITE MD [Primary Care Provider] - Follow up in 3-5 days KIM DALEY MD [ACTIVE STAFF] - Follow up as needed
[2017-02-02 11:03] LABS: ABSOLUTE EOSINOPHILS # (AUTO) 0.2 10^3/uL (0.0-0.6); ABSOLUTE LYMPHOCYTES (AUTO) 0.7 10^3/uL (0.5-4.7); ABSOLUTE MONOCYTES (AUTO) 0.5 10^3/uL (0.1-1.4); ABSOLUTE NEUT (AUTO) 4.3 10^3/uL (1.7-8.2); BASOPHILS % (AUTO) 0.8 % (0-2); EOSINOPHILS % (AUTO) 3.9 % (0-6); HEMATOCRIT 38.2 % (37.9-51.0); HEMOGLOBIN 13.2 g/dL (13.5-17.0); HGB HCT DIFFERENCE 1.4; LYMPHOCYTES % (AUTO) 12.5 % (13-45); MEAN CORPUSCULAR HEMOGLOBIN 33.7 pg (27.0-33.4); MEAN CORPUSCULAR HGB CONC 34.6 g/dL (32.0-36.0); MEAN CORPUSCULAR VOLUME 97 fl (80-97); MONOCYTES % (AUTO) 8.3 % (3-13); RED BLOOD COUNT 3.93 10^6/uL (4.35-5.55); RED CELL DISTRIBUTION WIDTH 14.6 % (11.5-14.0); SEGMENTED NEUTROPHILS % (AUTO) 74.5 % (42-78); WHITE BLOOD COUNT 5.8 10^3/uL (4.0-10.5)
[2017-02-02] MEDS ORDERED: NORMAL SALINE 1000 ML 1,000 ML IV ONE (11:08)
[2017-02-02] MEDS ORDERED: ONDANSETRON HCL INJ/PF 4 MG/2 ML SDV IV ONE (11:08)
[2017-02-02 11:21] LABS: ALANINE AMINOTRANSFERASE 44 U/L (21-72); ALBUMIN 3.6 g/dL (3.5-5.0); ALKALINE PHOSPHATASE 71 U/L (38-126); ANION GAP 9 (5-19); ASPARTATE AMINO TRANSFERASE 23 U/L (17-59); BILIRUBIN,DIRECT 0.5 mg/dL (0.0-0.4); BILIRUBIN,TOTAL 0.7 mg/dL (0.2-1.3); BLOOD UREA NITROGEN 14 mg/dL (7-20); CALCIUM 9.8 mg/dL (8.4-10.2); CARBON DIOXIDE 31 mmol/L (22-30); CHLORIDE 102 mmol/L (98-107); GLUCOSE 130 mg/dL (75-110); LIPASE 67.9 U/L (23-300); POTASSIUM 4.4 mmol/L (3.6-5.0); SODIUM 142.2 mmol/L (137-145)
--- NOTE | 2017-02-02 11:21 | RADIOLOGY REPORT (SQ) ---
EXAM DESCRIPTION: KUB/ABDOMEN (SINGLE VIEW) COMPLETED DATE/TIME: 02/02/2017 11:09 am REASON FOR STUDY: n/v COMPARISON: None. NUMBER OF VIEWS: One view. TECHNIQUE: Supine radiographic image of the abdomen acquired. LIMITATIONS: None. FINDINGS: BOWEL GAS PATTERN: Normal bowel gas pattern. Prominent stool throughout. No dilated loops . CALCIFICATIONS: No suspicious calcifications. SOFT TISSUES: No gross mass or suggestion of organomegaly. HARDWARE: None in the abdomen. BONES: No acute fracture. No worrisome bone lesions. OTHER: No other significant finding. IMPRESSION: NO RADIOGRAPHIC EVIDENCE FOR ACUTE ABDOMINAL DISEASE. PROBABLE CONSTIPATION. TECHNICAL DOCUMENTATION: JOB ID: [id number] [employer]- All Rights Reserved
[2017-02-02] MEDS ORDERED: DOCUSATE SODIUM 100 MG CAPSULE RT_EAR ONE (12:59)
[2017-02-02] MEDS ORDERED: IBUPROFEN 600 MG TABLET PO ONE (13:43)
[2017-02-02 14:01] LABS: AMORPHOUS SEDIMENT,URINE TRACE /HPF; APPEARANCE,URINE SLIGHTLY-CLOUDY; BILIRUBIN,URINE NEGATIVE (NEGATIVE); GLUCOSE, URINE NEGATIVE (NEGATIVE); KETONES,URINE NEGATIVE (NEGATIVE); LEUKOCYTE ESTERASE,URINE NEGATIVE (NEGATIVE); NITRITE,URINE NEGATIVE (NEGATIVE); PROTEIN,URINE NEGATIVE (NEGATIVE); URINE SPECIFIC GRAVITY 1.011; UROBILINOGEN,URINE NEGATIVE mg/dL (<2.0)
[2017-02-02] MEDS ORDERED: MINERAL OIL 30 ML UDCUP PR ONE (14:26)
== END 2017-02-02 17:09 | disposition home or self-care (01) ==
LOC: ER 09:41
DX: R42 Dizziness and giddiness (principal); H61.21 Impacted cerumen, right ear; K59.00 Constipation, unspecified; R11.2 Nausea with vomiting, unspecified
CPT/HCPCS: 99284; 96361; 96374; 36415; 83690; 85025; 80053; 81001; 74000; A9270 ×2; J3490; J2405; J7030

== ENCOUNTER 2017-02-04 03:03 | Emergency (ER) | payer MEDICARE, OTHER ==
[2017-02-04] MEDS ORDERED: MECLIZINE HCL 25 MG TABLET PO ONE (03:48)
[2017-02-04 04:37] LABS: ALANINE AMINOTRANSFERASE 42 U/L (21-72); ALBUMIN 3.6 g/dL (3.5-5.0); ALKALINE PHOSPHATASE 67 U/L (38-126); ANION GAP 14 (5-19); ASPARTATE AMINO TRANSFERASE 27 U/L (17-59); BILIRUBIN,DIRECT 0.4 mg/dL (0.0-0.4); BILIRUBIN,TOTAL 0.7 mg/dL (0.2-1.3); BLOOD UREA NITROGEN 21 mg/dL (7-20); CALCIUM 9.6 mg/dL (8.4-10.2); CARBON DIOXIDE 25 mmol/L (22-30); CHLORIDE 104 mmol/L (98-107); CREATININE RESULT 0.98 mg/dL (0.52-1.25); GLUCOSE 153 mg/dL (75-110); POTASSIUM 4.2 mmol/L (3.6-5.0); SODIUM 142.6 mmol/L (137-145); TOTAL PROTEIN 5.7 g/dL (6.3-8.2)
--- NOTE | 2017-02-04 04:54 | ER Document Report ---
ED General - General Chief Complaint: Nausea/Vomiting Stated Complaint: NAUSEA Time Seen by Provider: 02/04/17 03:07 Notes: Patient is an 89-year-old male who presents with complaint of recurrent nausea and vomiting as well as recurrent dizziness. Patient was admitted to the hospital last week. At that time she underwent MRI and MRA of the brain as well as CT scan. These were all negative. Is diagnosed with dizziness likely being vertigo. He was referred to ENT. Came back 2 days ago and was seen again. That time a lot of cerumen in his ear canals. Friday he followed up with the ENT doctor. ENT Dr. soto to his ear canals and told him that cerumen is not causing his dizziness. It is unclear whether or not the ear nose and throat physician actually told the patient and the family that he does have vertigo. I did speak to the daughter who is a very good historian she said that also they were told was that vertigo can sometimes last days to months. She says no new medications were added. Just they were not told her not to continue taking meclizine. Mother says she put out medications for him to take tonight but unclear whether or not he actually took meclizine before going to bed. Patient was doing very well throughout the day Friday and that until waking up at 2 AM feeling nauseous and feeling very dizzy and vomiting. That is why they came to the ER. No new injuries. No other complaints at this time. No fevers or infections. The patient's last visit to the ER on the he did receive an enema which caused him have a large bowel movement. Patient does not think she had a bowel movement since receiving the enema. TRAVEL OUTSIDE OF THE [place] IN LAST 30 DAYS: No - Related Data Allergies/Adverse Reactions: acetaminophen [From Percocet] Allergy (Severe, Verified 02/04/17 04:57) N&V codeine [Codeine] Allergy (Severe, Verified 02/04/17 04:57) N&V levofloxacin [From Levaquin] Allergy (Severe, Verified 02/04/17 04:57) oxycodone HCl [From Percocet] Allergy (Severe, Verified 02/04/17 04:57) N&V propoxyphene HCl [From Darvon] Allergy (Severe, Verified 02/04/17 04:57) N&V ranolazine [From Ranexa] Allergy (Verified 02/04/17 04:57) Past Medical History - Social History Smoking Status: Never Smoker Frequency of alcohol use: None Drug Abuse: None Family History: DM Patient has suicidal ideation: No Patient has homicidal ideation: No - Past Medical History Cardiac Medical History: Reports: Hx Congestive Heart Failure, Hx Coronary Artery Disease, Hx Hypertension, Hx Peripheral Vascular Disease Denies: Hx Heart Attack Pulmonary Medical History: Reports: Hx Asthma, Hx Bronchitis, Hx COPD Denies: Hx Pneumonia, Hx Tuberculosis Neurological Medical History: Denies: Hx Cerebrovascular Accident, Hx Seizures Endocrine Medical History: Reports: Hx Diabetes Mellitus Type 2 Renal/ Medical History: Denies: Hx Peritoneal Dialysis GI Medical History: Reports: Hx Gastroesophageal Reflux Disease Musculoskeltal Medical History: Reports Hx Arthritis, Reports Hx Muscle Weakness Psychiatric Medical History: Denies: Hx Depression Infectious Medical History: Past Surgical History: Reports: Hx Cardiac Catheterization - With 3 angioplasties., Hx Coronary Artery Bypass Graft, Hx Coronary Stent, Hx Inguinal Hernia - Bilateral inguinal hernia repairs in 1982, Hx Orthopedic Surgery - 5 cervical spine procedures, Hx Vascular Surgery - Aortobifem grafting by history. Denies: Hx Pacemaker - Immunizations Hx Diphtheria, Pertussis, Tetanus Vaccination: Yes Hx Pneumococcal Vaccination: 03/17/11 Review of Systems - Review of Systems Notes: My Normal Review Basic REVIEW OF SYSTEMS: CONSTITUTIONAL : Denies fever, chills, or sweats. Denies recent illness. EENT: Denies eye, ear, throat, or mouth pain or symptoms. Denies nasal or sinus congestion. CARDIOVASCULAR: Denies chest pain. RESPIRATORY: Denies cough, cold, or chest congestion. Denies shortness of breath, difficulty breathing, or wheezing. GASTROINTESTINAL: Denies abdominal pain. Denies nausea, vomiting, or diarrhea. MUSCULOSKELETAL: Denies neck or back pain or joint pain or swelling. SKIN: Denies rash or skin lesions. NEUROLOGICAL: Dizziness and vomiting worse with sitting up. ALL OTHER SYSTEMS REVIEWED AND NEGATIVE. Physical Exam - Vital signs Vitals: Temp Pulse Resp BP Pulse Ox 97.7 F 80 20 116/52 L 89 L 02/04/17 03:11 02/04/17 03:11 02/04/17 03:11 02/04/17 03:11 02/04/17 03:11 - Notes Notes: General Appearance: Well nourished, alert, cooperative, no acute distress, no obvious discomfort. Vitals: reviewed, See vital signs table. Head: no swelling or tenderness to the head Eyes: PERRL, EOMI, Conjuctiva clear Mouth: No decreasd moisture Throat: No tonsillar inflammation, Ears: Clear ear canals bilaterally. Normal-appearing tympanic membranes. Neck: Supple, no neck tenderness, No thyromegaly Lungs: No wheezing, No rales, No rhonci, No accessory muscle use, good air exchange bilaterally. Heart: Normal rate, Regular rythm, No murmur, no rub Abdomen: Normal BS, soft, No rigidity, No abdominal tenderness, No guarding, no rebound, no abdominal masses, no organomegaly Extremities: strength 5/5 in all extremities, good pulses in all extremities, no swelling or tenderness in the extremities, no edema. Skin: warm, dry, appropriate color, no rash Neuro: speech clear, oriented x 3, normal affect, responds appropriately to questions. Cranial nerves II through XII are intact. Distal sensation intact. Patient moves all extremities without difficulty. Normal Romberg. Patient currently does not have any dizziness or nausea and actually did well upon standing at bedside at this time. Course - Vital Signs Vital signs: Temp Pulse Resp BP Pulse Ox 98.2 F 80 14 97/71 L 97 02/04/17 07:15 02/04/17 03:11 02/04/17 08:01 02/04/17 08:01 02/04/17 08:01 - Laboratory Result Diagrams: 02/04/17 05:09 02/04/17 04:05 Laboratory results interpreted by me: 02/04/17 02/04/17 04:05 05:09 RBC 3.86 L Hgb 12.9 L Hct 37.6 L RDW 14.7 H Plt Count 103 L Lymphocytes % 12.9 L BUN 21 H Glucose 153 H Total Protein 5.7 L Discharge - Discharge Clinical Impression: Vertigo Condition: Good Disposition: HOME, SELF-CARE Additional Instructions: Please only take 0.5mg of the Pramipexole at night. Please try to start to cut back on the Tramadol. Please try to take Tylenol as a substitute for pain control. Please follow up with Dr. Reddy. Please take the Meclizine scheduled once every 8 hours. Please return to the ER immediately if you have intractable vomiting, fevers, severe abdominal pain, or feel unwell. Prescriptions: Meclizine HCl 25 mg PO TID #30 tablet Referrals: JERALD REDDY MD [Primary Care Provider] - Follow up in 3-5 days
--- NOTE | 2017-02-04 05:22 | RADIOLOGY REPORT (SQ) ---
EXAM DESCRIPTION: KUB/ABDOMEN (SINGLE VIEW) COMPLETED DATE/TIME: 02/04/2017 4:46 am REASON FOR STUDY: abdominal pain COMPARISON: None. NUMBER OF VIEWS: One view. TECHNIQUE: Supine radiographic image of the abdomen acquired. LIMITATIONS: None. FINDINGS: BOWEL GAS PATTERN: Normal bowel gas pattern. No dilated loops. CALCIFICATIONS: No suspicious calcifications. SOFT TISSUES: No gross mass or suggestion of organomegaly. 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 BONES: No acute fracture. No worrisome bone lesions. Chondrocalcinosis of bilateral hips. OTHER: No other significant finding. IMPRESSION: NO RADIOGRAPHIC EVIDENCE FOR ACUTE ABDOMINAL DISEASE. TECHNICAL DOCUMENTATION: JOB ID: [id number] [employer]- All Rights Reserved
[2017-02-04 05:41] LABS: ABSOLUTE EOSINOPHILS # (AUTO) 0.1 10^3/uL (0.0-0.6); ABSOLUTE LYMPHOCYTES (AUTO) 0.8 10^3/uL (0.5-4.7); ABSOLUTE MONOCYTES (AUTO) 0.5 10^3/uL (0.1-1.4); ABSOLUTE NEUT (AUTO) 4.6 10^3/uL (1.7-8.2); BASOPHILS % (AUTO) 0.6 % (0-2); EOSINOPHILS % (AUTO) 1.3 % (0-6); HEMATOCRIT 37.6 % (37.9-51.0); HEMOGLOBIN 12.9 g/dL (13.5-17.0); HGB HCT DIFFERENCE 1.1; LYMPHOCYTES % (AUTO) 12.9 % (13-45); MEAN CORPUSCULAR HEMOGLOBIN 33.4 pg (27.0-33.4); MEAN CORPUSCULAR HGB CONC 34.3 g/dL (32.0-36.0); MEAN CORPUSCULAR VOLUME 97 fl (80-97); MONOCYTES % (AUTO) 8.3 % (3-13); RED BLOOD COUNT 3.86 10^6/uL (4.35-5.55); RED CELL DISTRIBUTION WIDTH 14.7 % (11.5-14.0); SEGMENTED NEUTROPHILS % (AUTO) 76.9 % (42-78)
[2017-02-04] MEDS ORDERED: NORMAL SALINE 500 ML IV ONE (06:34)
[2017-02-04 07:37] LABS: APPEARANCE,URINE CLEAR; BILIRUBIN,URINE NEGATIVE (NEGATIVE); GLUCOSE, URINE NEGATIVE (NEGATIVE); KETONES,URINE NEGATIVE (NEGATIVE); LEUKOCYTE ESTERASE,URINE NEGATIVE (NEGATIVE); NITRITE,URINE NEGATIVE (NEGATIVE); PROTEIN,URINE NEGATIVE (NEGATIVE); URINE SPECIFIC GRAVITY 1.025; UROBILINOGEN,URINE NEGATIVE mg/dL (<2.0)
[2017-02-04 12:15] VITALS: BP 120/63
== END 2017-02-04 08:50 | disposition home or self-care (01) ==
LOC: ER 03:03
DX: R42 Dizziness and giddiness (principal); R11.2 Nausea with vomiting, unspecified
CPT/HCPCS: 99284; 96360; 51701; 36415; 85025; 80053; 81001; 74000; A9270; J7040